=== PATIENT | female | born 1950 ===

== ENCOUNTER 2018-06-18 19:59 | Inpatient (IN) | payer OTHER, MEDICARE ==
--- NOTE | 2018-06-18 20:12 | ED PDOC ---
Arrival/HPI - General Time Seen by Provider: 06/18/18 20:05 Historian: Spouse, EMS - History of Present Illness Narrative History of Present Illness (Text): 06/18/18 20:12 A 67 year old female, whose past medical history includes hypertension, presents to the emergency department via EMS accompanied by for possible CVA. Patient's reports she was found the patient on the floor and poorly responsive when he came home from work. Patient's reports patient was last seen normal earlier this morning. EMS transported patient with noted left sided weakness and poor response to questioning. ROS is limited due to patient's acuity of condition. PMD: Mariela Guillen Time/Duration: Prior to Arrival Symptom Onset: Sudden Symptom Course: Unchanged Activities at Onset: Light Context: Home Past Medical History - Provider Review Nursing Documentation Reviewed: Yes Family/Social History - Physician Review Nursing Documentation Reviewed: Yes Family/Social History: Unknown Family HX Allergies/Home Meds Allergies/Adverse Reactions: Allergies No Known Allergies Allergy (Verified 06/18/18 20:04) Home Medications: Home Meds Medication Instructions Recorded Confirmed Acetaminophen/Codeine 1 tab PO Q4 PRN 06/18/18 06/18/18 [Tylenol/Codeine 300 MG/30 MG] Carvedilol [Coreg] 12.5 mg PO BID 06/18/18 06/18/18 Losartan/Hydrochlorothiazide 1 tab PO DAILY 06/18/18 06/18/18 [Losartan-Hctz 100-12.5 mg Tab] Review of Systems - Review of Systems Systems not reviewed;Unavailable: Acuity of Condition Physical Exam Vital Signs Temp Pulse Resp BP Pulse Ox 06/18/18 23:39 98.5 F 72 17 126/82 100 06/18/18 22:38 98.5 F 74 17 121/58 L 100 06/18/18 22:19 98.5 F 69 20 123/80 100 06/18/18 22:06 98.5 F 68 19 114/77 100 06/18/18 21:54 98.5 F 71 19 124/60 100 06/18/18 21:38 98.5 F 66 19 127/68 100 06/18/18 21:20 98.5 F 86 18 123/85 91 L Mental Status: Positive for: other (+Awake, somnolent, but responsive when questioned). No: Alert and Oriented X 3, Confused, Agitated, Lethargic, Comatose Finger Stick Blood Glucose: 171 - Systems Exam Head: Present: Atraumatic Pupils: Present: Other (+miotic but responsive). No: PERRL, Sluggish, Non- Reactive, Pinpoint Extroacular Muscles: Present: Other (+right gaze preference). No: EOMI, Gaze Palsy, Entrapment Conjunctiva: Present: Normal Mouth: Present: Moist Mucous Membranes Neck: Present: Normal Range of Motion Respiratory/Chest: Present: Clear to Auscultation, Good Air Exchange. No: Respiratory Distress, Accessory Muscle Use Cardiovascular: Present: Regular Rate and Rhythm, Normal S1, S2. No: Murmurs Abdomen: No: Tenderness, Distention, Peritoneal Signs Back: Present: Normal Inspection Upper Extremity: Present: Neurovascularly Intact. No: Edema (no cyanosis edema) Lower Extremity: Present: Normal Inspection, Neurovascularly Intact. No: Edema Neurological: Present: Other (+right gaze preference, left hemiplegia, and right sided paresis). No: Motor Func Grossly Intact, Normal Sensory Function, Normal Cerebellar Funct, Norm Deep Tendon Reflexes, Gait Normal, Memory Normal, Normal 2Pt Descrimination Skin: Present: Warm, Dry, Normal Color. No: Rashes Medical Decision Making ED Course and Treatment: 06/18/18 20:12 Impression: 67 year old female presenting to the emergency department brought in by EMS for a stroke. Plan: -- Type and Screen -- Head CT without contrast -- EKG -- Labs -- Stroke Consult Team -- CBC -- COAGs -- Chest X-ray -- IV fluids -- Reassess and disposition Prior Visits: Notes and results from previous visits were reviewed. Progress Notes: 06/18/18 20:05 Upon arrival, CODE STROKE was called. Pt taken to CT scan. 06/18/18 20:[address] Hart, who requests CTA Head/Neck if no bleed. 06/18/18 20:36 CT Head Without Intravenous Contrast Impression: Findings compatible with acute right cerebral hemispheric infarct including right anterior cerebral artery, right middle cerebral artery, and right posterior cerebral artery territories. Hyperdense distal right internal carotid artery suspected to represent acute thrombus and possible hyperdense right middle cerebral artery. Dictator: Juan Alberto Moses MD 06/18/18 21:05 CT results discussed with Dr. Hart, neurologist, who is aware and agrees with plan. CTA Head/Neck Pending. Patient will receive rectal aspirin, magnesium, and IV fluids. As per Dr. Hart, patient is not a candidate for tPA given bleeding risk. Dr. Hart reviewed CTA, states due to severity of right sided CVA and extension , pt not a candidate for tPA, as stated previously, or for interventional procedure, i.e thrombectomy. Pt will require ICU monitoring at this time. Recommends repeat CT in 12 hours to assess for any cerebral edema. 06/18/18 21:18 Case discussed with dental assistant medical assistant inventory control clerk, who is aware and agrees with plan. 06/18/18 21:20 Spoke with family regarding the gravity of the patient's condition, who are aware and verbalize understanding. Case discussed with Dr. Layton, operations controller, present in Emergency department, who agrees with plan. Patient will be admitted to the ICU for CVA under the hospitalist service. 06/18/18 21:27 Reviewed EKG, NSR at 79 bpm. PACs. Lateral infarct. Non-specific ST/T wave changes. 06/18/18 21:43 Chest X-ray shows: Lungs: There is moderate perihilar interstitial prominence consistent with volume overload or early congestive heart failure. Pleural space: Unremarkable. Heart: There is moderate cardiomegaly. Mediastinum: Unremarkable. Bones/joints: Unremarkable. IMPRESSION: Acute CHF exacerbation. Dictated and Authenticated by: Jayson Mckeon MD 06/18/2018 9:42 PM Eastern Time ([place] & [place]) CTA Head shows: Right internal carotid artery: The right ICA within the intracranial portion is completely occluded. No aneurysm. Right anterior cerebral artery: Unremarkable. No occlusion or significant stenosis. No aneurysm. Right middle cerebral artery: The is markedly diminished flow to the distal branches of the right middle cerebral artery. M1 and M2 segments however do appear patent. No occlusion or significant stenosis. No aneurysm. Right posterior cerebral artery: Unremarkable. No occlusion or significant stenosis. No aneurysm. Right vertebral artery: Unremarkable as visualized. Left internal carotid artery: No acute findings. Intracranial segment is patent with no significant stenosis. No aneurysm. Left anterior cerebral artery: Unremarkable. No occlusion or significant stenosis. No aneurysm. Left middle cerebral artery: Unremarkable. No occlusion or significant stenosis. No aneurysm. Left posterior cerebral artery: Unremarkable. No occlusion or significant stenosis. No aneurysm. Left vertebral artery: Unremarkable as visualized. Basilar artery: Unremarkable. No occlusion or significant stenosis. No aneurysm. Brain: The entire right hemisphere is edematous with complete loss of huang- white matter differentiation. IMPRESSION: Complete occlusion of the right internal carotid artery within the neck, and involving intracranial segment. Although flow is noted is noted within proximal right M1 segment secondary to collateral circulation from the cheesh[place] of [place], there is a complete acute infarction of the entire right hemisphere in progress. No bleed is suggested. Flow is diminished in the distal branch of the right MCA. Dictated and Authenticated by: Jayson Mckeon MD 06/18/2018 9:39 PM Eastern Time ([place] & [place]) CTA Neck shows: Right common carotid artery: Unremarkable. No significant stenosis. No dissection or occlusion. Right internal carotid artery: The right internal carotid artery artery is completely occluded at its origin and extends into the intracranial segment and into the cheesh-na of [place]. Right external carotid artery: Unremarkable. No occlusion. Right vertebral artery: Right vertebral artery is patent and dominant. No significant stenosis. No dissection or occlusion. Left common carotid artery: Unremarkable. No significant stenosis. No dissection or occlusion. Left internal carotid artery: Unremarkable. Extracranial segment is patent with no significant stenosis. No dissection or occlusion. Left external carotid artery: Unremarkable. No occlusion. Left vertebral artery: Left vertebral artery is patent but diminutive. No significant stenosis. No dissection or occlusion. NECK: Bones/joints: The spine demonstrates moderate degenerative changes at multiple levels. No acute fracture. No dislocation. Soft tissues: Unremarkable as visualized. No mass. Orbits: The orbits are normal. Sinuses: Sinuses are clear without air-fluid levels, or mucoperiosteal thickening. Thyroid: The visualized aorta and the great vessels are normal. Negative for dissection, or aneurysm.The visualized thyroid and the thoracic inlet appear normal. Lung apices: Upper lungs show patchy interstitial densities likely edema with thickening of interlobular septa. CAROTID STENOSIS REFERENCE USING NASCET CRITERIA: % ICA stenosis = (1 - narrowest ICA diameter/diameter of distal cervical ICA) x 100. Mild - <50% stenosis. Moderate - 50-69% stenosis. Severe - 70-94% stenosis. Near occlusion - 95-99% stenosis. Occluded - 100% stenosis. IMPRESSION: Complete occlusion of the right internal carotid artery from its origin all the way to the cheesh-na of [place]. Dictated and Authenticated by: Jayson Mckeon MD 06/18/2018 9:41 PM Eastern Time ([place] & [place]) 06/18/18 21:58 Labs noted with positive troponin of 0.74, BNP of 720. IV fluids cancelled. Spoke with Dr. Hart, recommends patient be started on heparin drip only(NSTEMI ) at this time given patients risk of bleed with any aggressive anticoagulation. - Critical Care Critical Care Minutes: 45 minutes - Lab Interpretations Lab Results: 06/18/18 21:10 06/18/18 21:10 Lab Results 06/18/18 21:10: NT-Pro-B Natriuret Pep 720 H 06/18/18 21:10: Blood Type A POSITIVE, Antibody Screen Negative, BBK History Checked No verified bt 06/18/18 21:10: Sodium 138, Potassium 4.3, Chloride 101, Carbon Dioxide 22, Anion Gap 19, BUN 22 H, Creatinine 0.7, Est GFR ( Amer) > 60, Est GFR ( Non-Af Amer) > 60, Random Glucose 180 H, Calcium 9.4, Total Bilirubin 1.0, AST 33, ALT 20, Alkaline Phosphatase 89, Troponin I 0.74 H*, Total Protein 7.8, Albumin 4.2, Globulin 3.6, Albumin/Globulin Ratio 1.1, Triglycerides 127, Cholesterol 268 H, LDL Cholesterol Direct 160 H, HDL Cholesterol 64 H 06/18/18 21:10: PT 11.3, INR 0.99, APTT 23.4 L 06/18/18 21:10: WBC 11.3 H, RBC 4.43, Hgb 14.0, Hct 42.2, MCV 95.3, MCH 31.6, MCHC 33.2, RDW 12.8, Plt Count 170, MPV 10.0, Gran % 86.9 H, Lymph % (Auto) 9.6 L, [place] % (Auto) 3.5, Eos % (Auto) 0.0 L, Baso % (Auto) 0.0, Gran # 9.82 H, Lymph # (Auto) 1.1 L, [place] # (Auto) 0.4, Eos # (Auto) 0.0, Baso # (Auto) 0.00 06/18/18 21:09: pCO2 34 L, pO2 52.0 L, HCO3 20.6 L, ABG pH 7.39, ABG Total CO2 21.6 L, ABG O2 Saturation 91.6 L, ABG O2 Content 16.2, ABG Base Excess -3.7 L, ABG Hemoglobin 12.9, ABG Carboxyhemoglobin 1.5, POC ABG HHb (Measured) 8.2 H, ABG Methemoglobin 0.7, ABG O2 Capacity 17.7, Hgb O2 Saturation 89.6 L, FiO2 36.0 I have reviewed the lab results: Yes - RAD Interpretation Radiology Orders: 06/18/18 20:06 HEAD W/O (CODE STROKE) [CT] Stat CHEST ONE VIEW [RAD] Stat 06/18/18 20:36 CTA HEAD/NECK CODE STROKE [CT] Stat Shrub Grower: ED Physician, Radiologist - Medication Orders Current Medication Orders: Albuterol/Ipratropium (Duoneb 3 Mg/0.5 Mg (3 Ml) Ud) 3 ml IH [id number] MARQUIS Last Admin: 06/19/18 01:07 Dose: 3 ml Atorvastatin Calcium (Lipitor) 80 mg PO DIN MARQUIS Piperacillin Sod/Tazobactam Sod (Zosyn 3.375 In Ns 100ml) 100 mls @ 200 mls/hr IVPB Q6 MARQUIS PRN Reason: Protocol Stop: 06/19/18 06:29 Last Admin: 06/19/18 00:45 Dose: 200 mls/hr eMAR Start Stop Document 06/19/18 00:45 MG (Rec: 06/19/18 00:45 MG [id number]) Intravenous Solution Start Date 06/19/18 Start Time 00:45 End Date 06/19/18 End time 01:15 Total Infusion Time 30 Heparin Sodium/Sodium Chloride (Heparin 25991 Units/250ml 1/2 Normal Saline) 25 ,000 units in 250 mls @ 8.241 mls/hr IV .Q24H MARQUIS; 12 UNITS/KG/HR PRN Reason: Protocol Last Admin: 06/18/18 23:30 Dose: 12 units/kg/hr, 8.241 mls/hr eMAR Start Stop Document 06/18/18 23:30 OCS (Rec: 06/18/18 23:31 OCS [id number]) Intravenous Solution Start Date 06/18/18 Start Time 23:30 MAR aPTT Document 06/18/18 23:30 OCS (Rec: 06/18/18 23:31 OCS [id number]) aPTT aPTT (secs) 23.4 Titration Intervention Document 06/18/18 23:30 OCS (Rec: 06/18/18 23:31 OCS [id number]) Titration Intake Waste Amount 0 Container Volume 250 Titration Dosing Titration Dose 12 IV Rate 8.241 Intake/Decrease Started Discontinued Medications Aspirin (Aspirin Supp) 300 mg RC STAT STA Stop: 06/18/18 21:07 Last Admin: 06/18/18 21:50 Dose: 300 mg MAR Pain/Vitals Document 06/18/18 21:50 JMR (Rec: 06/18/18 21:51 [id number] Pain Reassessment Is This A Pain ReAssessment? No Sleep Is patient sleeping during reassessment? No Presence of Pain Presence of Pain No Sodium Chloride (Sodium Chloride 0.9%) 1,000 mls @ 100 mls/hr IV .Q10H [facility] Last Admin: 06/18/18 21:56 Dose: Magnesium Sulfate/Dextrose (Magnesium Sulfate 1 Gm/100 Ml D5w) 1 gm in 100 mls @ 100 mls/hr IVPB ONCE ONE Stop: 06/18/18 22:06 Last Admin: 06/18/18 21:51 Dose: 100 mls/hr eMAR Start Stop Document 06/18/18 21:51 JMR (Rec: 06/18/18 21:51 R [id number]) Intravenous Solution Start Date 06/18/18 Start Time 21:51 Sodium Chloride (Sodium Chloride 0.9%) 1,000 mls @ 999 mls/hr IV .Q1H1M STA Stop: 06/18/18 23:01 NIHSS Scale ([place]) Time Performed: 20:05 - How Severe is the Stoke Baseline Level of Consciousness: 1=Drowsy LOC to Questions: 1=One correct LOC to commands: 1=Obeys one correctly Best Gaze: 2=Forced deviation Visual: 0=No visual loss Facial: 0=Normal Motor Arm - Left: 4=No movement Motor Arm - Right: 2=Falls before 10 sec Motor Leg - Left: 4=No movement Motor Leg - Right: 2=Falls before 5 sec Limb Ataxia: 0=Absent Sensory: 0=Normal Best Language: 0=No aphasia Dysarthia: 1=Mild to moderate slurring Extinction & Inattention (Neglect): 0=Normal, no object Score: 18 Risk Level: Mod/Sev Stroke Risk rTPA Inclusion/Exclusion - Refusal of Treatment Patient Refused Treatment: No - Inclusion Criteria for Altepase Patient is 18 years or Older: Yes The Clinical Diagnosis of Ischemic Stroke That is Causing a Potentially Disabling Neurological Deficit: Yes Time of Onset is Well Established to be Less Than 270 Minute Before Treatment Would Begin: No - Exclusion Criteria for Altepase Uncontrolled Hypertension at Time of Treatment (Systolic BP above 185 or Diastolic BP above 110 mmHg): No Active Internal Bleeding: No Known Bleeding Diathesis Including but Not Limited to: Platelets Below 100,000/ mm,PTT Above 40 sec After Heparin Use, Current Use of Oral Anitcoagulant With INR Greater Than 1.7 or PT Greater Than 15 secs: No Evidence of an Intracranial Hemorrhage: No Evidence of Major Acute Infarct With Signs Greater Than 1/3 MCA Territory: Yes Suspicion of Subarachnoid Hemorrhage on Pretreatment Evaluation Even if CT Head Negative For Hemorrhage: No - Warning to TPA With Conditions Following Conditions Weighed Against Anticipated Benefit: Yes Condition: Increase Risk of Bleed Due to Comorbid Condition - Scribe Statement The provider has reviewed the documentation as recorded by the Lawanda Molina All medical record entries made by the Delmisibdavid were at my direction and personally dictated by me. I have reviewed the chart and agree that the record accurately reflects my personal performance of the history, physical exam, medical decision making, and the department course for this patient. I have also personally directed, reviewed, and agree with the discharge instructions and disposition. Disposition/Present on Arrival - Present on Arrival Any Indicators Present on Arrival: No History of DVT/PE: No History of Uncontrolled Diabetes: No Urinary Catheter: No History of Decub. Ulcer: No History Surgical Site Infection Following: None - Disposition Have Diagnosis and Disposition been Completed?: Yes Diagnosis: CVA (cerebral vascular accident), NSTEMI (non-ST elevated myocardial infarction ) Disposition: HOSPITALIZED Disposition Time: 21:34 Patient Plan: Admission Patient Problems: Current Active Problems Problem Status Onset CVA (cerebral vascular accident) Acute NSTEMI (non-ST elevated myocardial infarction) Acute Condition: CRITICAL
[2018-06-18] MEDS ORDERED: Sodium Chloride 0.9% 1,000 ML IV SCH (20:15)
[2018-06-18] MEDS ORDERED: Iohexol 350 MG/100 ML VIAL ONE (20:15)
[2018-06-18] MEDS ORDERED: Magnesium Sulfate 1 gm in D5W 1 GM/100 ML BAG IVPB ONE (21:07)
[2018-06-18 21:12] LABS: ARTERIAL BLOOD GAS HCO3 20.6 mmol/L (21-28); ARTERIAL BLOOD GAS HEMOGLOBIN 12.9 g/dL (11.7-17.4); ARTERIAL BLOOD GAS O2 CAPACITY 17.7 mL/dl (16-24); ARTERIAL BLOOD GAS O2 CONTENT 16.2 ML/dl (15-23); ARTERIAL BLOOD GAS O2 SAT 91.6 % (95-98); ARTERIAL BLOOD GAS PCO2 34 mm/Hg (35-45); ARTERIAL BLOOD GAS PH 7.39 (7.35-7.45); ARTERIAL BLOOD GAS TCO2 21.6 mmol.L (22-28)
[2018-06-18 21:14] LABS: GRAN # 9.82 (1.4-6.5); GRAN % 86.9 % (50.0-68.0); LYMPH # 1.1 (1.2-3.4); LYMPH % 9.6 % (22.0-35.0); MEAN CELL VOLUME 95.3 fl (80.0-105.0); MEAN CORPUSCULAR HEMOGLOBIN 31.6 pg (25.0-35.0); MEAN CORPUSCULAR HGB CONC 33.2 g/dl (31.0-37.0); MONO # 0.4 (0.1-0.6); MONO % 3.5 % (1.0-6.0); RBC 4.43 10^6/uL (3.5-6.1); RED CELL DISTRIBUTION WIDTH 12.8 % (11.5-14.5); WHITE BLOOD COUNT 11.3 10^3/ul (4.5-11.0)
[2018-06-18 21:27] LABS: ALB/GLOB RATIO 1.1 (1.1-1.8); ALBUMIN 4.2 g/dL (3.0-4.8); ALT/SGPT 20 U/L (7-56); AST/SGOT 33 U/L (14-36); BLOOD UREA NITROGEN 22 mg/dL (7-21); CALCIUM 9.4 mg/dL (8.4-10.5); GFR NON-AFRICAN AMERICAN > 60; HDL CHOLESTEROL 64 mg/dL (29-60)
[2018-06-18 21:37] LABS: LDL CHOLESTEROL 160 mg/dL (0-129)
[2018-06-18 21:40] LABS: INR 0.99; PARTIAL THROMBOPLASTIN TIME 23.4 Seconds (25.1-36.5); PROTHROMBIN TIME 11.3 SECONDS (9.4-12.5)
[2018-06-18 21:50] LABS: TROPONIN I 0.74 ng/mL
[2018-06-18] MEDS: Sodium Chloride 0.9% 1,000 ML IV SCH ×2 (21:51→21:56)
[2018-06-18] MEDS ORDERED: Sodium Chloride 0.9% 1,000 ML IV STA (22:01)
[2018-06-18] MEDS ORDERED: Heparin25000 units/250ml 1/2NS 25,000 UNITS/250 ML BAG IV PRN (22:03)
[2018-06-18] MEDS ORDERED: Heparin 25,000units in 1/2NS 250 ML BAG IV SCH (23:30)
[2018-06-19 00:13] LABS: URINE BILIRUBIN NEGATIVE (NEGATIVE); URINE BLOOD NEGATIVE (NEGATIVE); URINE GLUCOSE (UA) 100 mg/dL (NEGATIVE); URINE LEUKOCYTE ESTERASE NEGATIVE Leu/uL (NEGATIVE); URINE PROTEIN NEGATIVE mg/dL (<30 mg/dL); URINE UROBILINOGEN 0.2 E.U./dL (<1 E.U./dL)
[2018-06-19 00:15] LABS: URINE APPEARANCE CLEAR (CLEAR); URINE COLOR YELLOW (YELLOW)
[2018-06-19 00:44] LABS: ARTERIAL BLOOD GAS HCO3 23.7 mmol/L (21-28); ARTERIAL BLOOD GAS HEMOGLOBIN 14.9 g/dL (11.7-17.4); ARTERIAL BLOOD GAS O2 CAPACITY 20.8 mL/dl (16-24); ARTERIAL BLOOD GAS O2 CONTENT 20.8 ML/dl (15-23); ARTERIAL BLOOD GAS PCO2 42 mm/Hg (35-45); ARTERIAL BLOOD GAS PH 7.36 (7.35-7.45)
[2018-06-19] MEDS: Piperacillin/Tazobact 3.375 gm 100 ML IVPB SCH ×2 (00:45→05:51)
[2018-06-19] MEDS: Albuterol-Ipratrop 3 mg / 0.5 (3 ml) UD IH SCH ×2 (01:07→08:19)
[2018-06-19 02:03] VITALS: TEMP 97.6; BMI 25.5
--- NOTE | 2018-06-19 02:12 | CP.PCM.HP ---
<Ruddy Pavon - Last Filed: 06/19/18 06:08> History of Present Illness - History of Present Illness History of Present Illness: Ruddy Savanah DO PGY-1, H&P for hospitalist CC: unresponsive pt found on the floor This is a 67 year-old female with past medical history of hypertension who was brought in by ambulance due to patient being found on floor, unresponsive with left-sided weakness noted at 7 PM today. As per , patient was last seen moving on motion detector camera at home at around 10:12 AM. Via video footage, she proceeded to enter a room and never returned. Patient's arrived at the house at 7 PM today after work and found the patient on the floor unable to speak, "mumbling incomprehensively," and unable to move the left side of her body. proceeded to call 911. Prior to arrival of EMS patient had one episode of vomiting in the house, described as brown/orange colored: He denies any bright blood or bilious material. As per , patient was in her normal health when leaving for work this morning. As per , patient has not had any recent fever, chills, illness, chest pain, shortness of breath, abdominal pain, nausea, vomiting, diarrhea, weakness, lightheadedness, dysuria mentioned to the prior to incident today. On arrival to the ED code stroke was called. And noncontrast head CT was done. ED physician noted that patient had left-sided flaccid paralysis and right gaze preference. Patient was nonverbal and unable to open her eyes. Noncontrast Head CT Findings compatible with acute right cerebral hemispheric infarct including right anterior cerebral artery, right middle cerebral artery, and right posterior cerebral artery territories. Hyperdense distal right internal carotid artery suspected to represent acute thrombus and possible hyperdense right middle cerebral artery. ED consulted neurology. Dr. Hart recommended no TPA at this time due to unknown duration of sypmtoms, and no thrombectomy at this time. Patient received magnesium 1g IVPB and NS IVF. Neurology instructed the ED to keep blood pressure less than 220 systolic. ICU consulted for management of pt. PMD: Alam. Last seen one month ago. Patient regularly follows up with her primary care physician as per . PMH: Hypertension, Asthma PSH: tooth extraction a couple of months ago Medications: Carvedilol 12.5 mg QD, Losartan/HCTZ 100/12.5 mg QD, Tylenol #3 300 /30 mg PO PRN pain Q4-6H Allergies: NKDA Family history: mother had a CABG. No history of cancers Social history: no smoking, no etoh, no illicit drug use. Patient lives in [place] with her , who is the bedside. Code status: , discussed with family, and would like patient to be intubated and CPR be initiated if needed. Present on Admission - Present on Admission Any Indicators Present on Admission: No Review of Systems - Review of Systems All systems: reviewed and no additional remarkable complaints except (as per HPI ) Past Patient History - Infectious Disease Hx of Infectious Diseases: None - Past Social History Smoking Status: Unknown If Ever Smoked - CARDIAC Hx Cardiac Disorders: Yes Hx Hypotension: Yes - PULMONARY Hx Respiratory Disorders: Yes Hx Asthma: Yes - NEUROLOGICAL Hx Neurological Disorder: No - HEENT Hx HEENT Problems: No - RENAL Hx Chronic Kidney Disease: No - ENDOCRINE/METABOLIC Hx Endocrine Disorders: No - HEMATOLOGICAL/ONCOLOGICAL Hx Blood Disorders: No - INTEGUMENTARY Hx Dermatological Problems: No - MUSCULOSKELETAL/RHEUMATOLOGICAL Hx Musculoskeletal Disorders: No - GASTROINTESTINAL Hx Gastrointestinal Disorders: No - GENITOURINARY/GYNECOLOGICAL Hx Genitourinary Disorders: No - PSYCHIATRIC Hx Psychophysiologic Disorder: No Hx Substance Use: No (unknown) - SURGICAL HISTORY Hx Surgeries: (Dental Surgery 1 month ago) Meds Allergies/Adverse Reactions: Allergies Allergy/AdvReac Type Severity Reaction Status Date / Time No Known Allergies Allergy Verified 06/18/18 20:04 Physical Exam - Constitutional Appears: No Acute Distress - Head Exam Head Exam: ATRAUMATIC, NORMAL INSPECTION - Eye Exam Eye Exam: PERRL Additional comments: (+) right sided gaze preference, eyes do not track past midline - ENT Exam ENT Exam: Mucous Membranes Moist, Normal Exam - Neck Exam Neck exam: Positive for: Normal Inspection Additional comments: (-) carotid bruit bilaterally - Respiratory Exam Respiratory Exam: Rhonchi (scattered), Wheezes (scattered) - Cardiovascular Exam Cardiovascular Exam: REGULAR RHYTHM, +S1, +S2. absent: Systolic Murmur - GI/Abdominal Exam GI & Abdominal Exam: Normal Bowel Sounds, Soft. absent: Tenderness - Extremities Exam Extremities exam: Positive for: normal inspection, pedal pulses present (3+ bilaterally). Negative for: pedal edema - Neurological Exam Neurological exam: Motor Sensory Deficit (Pt is following commands, but eyes remain closed. 3/5 strength right upper and lower extremities. 0/5 strength upper and lower extremities, including CN XI. Unresponsive to painful stimuli on the left upper and lower extremities.) Additional comments: (+) gag reflex, remainder of cranial nerves are unable to be assessed to pt not following commands - Skin Skin Exam: Dry, Normal Color, Warm Results - Vital Signs Recent Vital Signs: Last Vital Signs Temp 98.5 F 06/18/18 23:50 Pulse 65 06/19/18 01:20 Resp 18 06/19/18 01:20 BP 130/77 06/19/18 01:15 Pulse Ox 100 06/19/18 01:20 - Labs Result Diagrams: 06/18/18 21:10 06/18/18 21:10 Labs: Laboratory Results - last 24 hr 06/18/18 06/18/18 06/19/18 21:52 23:40 00:38 pCO2 42 pO2 172.0 H HCO3 23.7 ABG pH 7.36 ABG Total CO2 25.0 ABG O2 Saturation 100.0 H ABG O2 Content 20.8 ABG Base Excess -1.8 ABG Hemoglobin 14.9 ABG Carboxyhemoglobin 1.5 POC ABG HHb (Measured) 0 ABG Methemoglobin 0.8 ABG O2 Capacity 20.8 Hgb O2 Saturation 97.6 FiO2 50.0 Urine Color Yellow Urine Appearance Clear Urine pH 6.0 Ur Specific [place] 1.020 Urine Protein Negative Urine Glucose (UA) 100 H Urine Ketones Trace H Urine Blood Negative Urine Nitrate Negative Urine Bilirubin Negative Urine Urobilinogen 0.2 Ur Leukocyte Esterase Negative Blood Type Confirm A POSITIVE Assessment & Plan - Assessment and Plan (Free Text) Assessment: This is a 67 year-old female with past medical history of hypertension, asthma who was brought in by ambulance due to inability to speak and left-sided weakness noted by at 7 pm on 06/18/18 but unknown duration of symptoms, and pt last seen with normal function at approximately [address] Findings compatible with acute right cerebral hemispheric infarct including right anterior cerebral artery, right middle cerebral artery, and right posterior cerebral artery territories. Pt admitted to ICU for neurological and cardiovascular monitoring. Plan: Neuro: acute right cerebral hemispheric infarct - NIHSS is 18 on admission - Outside the time window for tPA and per neurologist, Dr Hart, patient not candidate for neurointervention - Noncontrast Head CT Findings compatible with acute right cerebral hemispheric infarct including right anterior cerebral artery, right middle cerebral artery, and right posterior cerebral artery territories. Hyperdense distal right internal carotid artery suspected to represent acute thrombus and possible hyperdense right middle cerebral artery. - Head and Neck CTA shows Complete occlusion of the right internal carotid artery from its origin all the way to the [place]. Although flow is noted within proximal right M1 segment secondary to collateral circulation from the [place], there is a complete acute infarction of the entire right hemisphere in progress. No bleed is suggested. Flow is diminished in the distal branch of the right MCA. - repeat Head CT in am to evaluate for cerebral edema - neurochecks - aspiration, seizure and fall precautions - Neurology consulted, recs appreciated Cardio: NSTEMI - troponin elevated at 0.74 on admission; will trend troponin x3 Q6H - As per ED physician, who spoke with Dr. Hart, it was recommended to start pt on Heparin gtt - EKG shows NSR at 79 bpm, non-specific STT wave changes - maintain MAP>65 mmHg - maintain permissive HTN SBP<220, DBP<120 - f/u echocardiogram - Lipitor 80 mg via NGT for secondary prevention of stroke Pulm: Possible Aspiration Pneumonia - given history of vomiting prior to EMS arrival and CXR findings; aspiration pneumonia is a concern - Zosyn started - maintain SpO2>95%; venturi mask - HoB>45 degrees - donuebs q6h GI: - Pt placed NPO pending swallow eval - NGT placed for stomach emptying to reduce risk of aspiration - protonix for GI ppx Renal: - epstein in place - strict Is and Os - BUN/Cr is 22/07 on admission - maintain euvolemia - gentle hydration if needed, in light of vascular congestion and BNP elevation Endo: - maintain euglycemia - f/u TSH/free T4 Heme: - H/H is 14.0/42.2 on admission - pt is on heparin gtt for treatment of NSTEMI ID: - leukocytosis is likely reactive; pt afebrile - continue zosyn for suspected aspiration pneumonia PPX: Protonix for GI, SCDs for DVT; pt is on heparin gtt Case was discussed and reviewed with attending physician, Dr. Layton <Taylor Layton - Last Filed: 06/19/18 06:34> Results - Vital Signs Recent Vital Signs: Last Vital Signs Temp 97.6 F 06/19/18 01:08 Pulse 68 06/19/18 02:00 Resp 18 06/19/18 01:20 BP 130/77 06/19/18 01:15 Pulse Ox 100 06/19/18 01:20 - Labs Result Diagrams: 06/18/18 21:10 06/18/18 21:10 Labs: Laboratory Results - last 24 hr 06/18/18 06/18/18 06/19/18 21:52 23:40 00:38 pCO2 42 pO2 172.0 H HCO3 23.7 ABG pH 7.36 ABG Total CO2 25.0 ABG O2 Saturation 100.0 H ABG O2 Content 20.8 ABG Base Excess -1.8 ABG Hemoglobin 14.9 ABG Carboxyhemoglobin 1.5 POC ABG HHb (Measured) 0 ABG Methemoglobin 0.8 ABG O2 Capacity 20.8 Hgb O2 Saturation 97.6 FiO2 50.0 Urine Color Yellow Urine Appearance Clear Urine pH 6.0 Ur Specific [place] 1.020 Urine Protein Negative Urine Glucose (UA) 100 H Urine Ketones Trace H Urine Blood Negative Urine Nitrate Negative Urine Bilirubin Negative Urine Urobilinogen 0.2 Ur Leukocyte Esterase Negative Blood Type Confirm A POSITIVE Attending/Attestation - Attestation I have personally seen and examined this patient.: Yes I have fully participated in the care of the patient.: Yes I have reviewed all pertinent clinical information: Yes Notes (Text): 06/19/18 06:34 Discussed with family guarded prognosis, but family agreed on full code.
[2018-06-19 07:30] LABS: GRAN # 12.93 (1.4-6.5); GRAN % 87.8 % (50.0-68.0); HEMOGLOBIN 14.2 g/dL (12.0-16.0); LYMPH # 1.1 (1.2-3.4); LYMPH % 7.3 % (22.0-35.0); MEAN CELL VOLUME 94.2 fl (80.0-105.0); MEAN CORPUSCULAR HEMOGLOBIN 31.5 pg (25.0-35.0); MEAN CORPUSCULAR HGB CONC 33.4 g/dl (31.0-37.0); MEAN PLATELET VOLUME 10.7 fl (7.0-11.0); MONO # 0.7 (0.1-0.6); MONO % 4.9 % (1.0-6.0); RBC 4.51 10^6/uL (3.5-6.1); RED CELL DISTRIBUTION WIDTH 13.2 % (11.5-14.5); WHITE BLOOD COUNT 14.7 10^3/ul (4.5-11.0)
[2018-06-19 08:41] LABS: ALB/GLOB RATIO 1.2 (1.1-1.8); ALBUMIN 4.4 g/dL (3.0-4.8); ALT/SGPT 15 U/L (7-56); AST/SGOT 47 U/L (14-36); BLOOD UREA NITROGEN 24 mg/dL (7-21); CALCIUM 9.4 mg/dL (8.4-10.5); GFR NON-AFRICAN AMERICAN > 60
--- NOTE | 2018-06-19 09:15 | CT ---
Date of service: 06/18/2018 PROCEDURE: CT HEAD WITHOUT CONTRAST. HISTORY: Code Stroke COMPARISON: None available. TECHNIQUE: Axial computed tomography images were obtained through the head/brain without intravenous contrast. Radiation dose: Total exam DLP = 962 mGy-cm. This CT exam was performed using one or more of the following dose reduction techniques: Automated exposure control, adjustment of the mA and/or kV according to patient size, and/or use of iterative reconstruction technique. FINDINGS: HEMORRHAGE: No intracranial hemorrhage. BRAIN: There is a diffuse infarct of the right cerebral hemisphere with edema and mass effect with loss of sulci. No significant midline shift. The basal cisterns are maintained The right internal carotid and proximal middle cerebral artery are hyper dense suspicious for thrombus. VENTRICLES: Unremarkable. No hydrocephalus. CALVARIUM: Unremarkable. PARANASAL SINUSES: Unremarkable as visualized. No significant inflammatory changes. MASTOID AIR CELLS: Unremarkable as visualized. No inflammatory changes. OTHER FINDINGS: The report concurs with the preliminary [facility] report IMPRESSION: There is a diffuse infarct of the right cerebral hemisphere with edema and mass effect with loss of sulci. No significant midline shift. The basal cisterns are maintained The right internal carotid and proximal middle cerebral artery are hyper dense suspicious for thrombus.
--- NOTE | 2018-06-19 09:17 | CT ---
Date of service: 06/19/2018 PROCEDURE: CT HEAD WITHOUT CONTRAST. HISTORY: neurological changes, r/o bleed COMPARISON: None available. TECHNIQUE: Axial computed tomography images were obtained through the head/brain without intravenous contrast. Radiation dose: Total exam DLP = 902 mGy-cm. This CT exam was performed using one or more of the following dose reduction techniques: Automated exposure control, adjustment of the mA and/or kV according to patient size, and/or use of iterative reconstruction technique. FINDINGS: HEMORRHAGE: No intracranial hemorrhage. BRAIN: There is severe swelling of the right hemisphere with 18 mm of midline shift to the left. There is uncal herniation with compression of the midbrain and obliteration of the basal cisterns. VENTRICLES: Compression of the right lateral ventricle CALVARIUM: Unremarkable. PARANASAL SINUSES: Unremarkable as visualized. No significant inflammatory changes. MASTOID AIR CELLS: Unremarkable as visualized. No inflammatory changes. OTHER FINDINGS: The findings were discussed with the CCU market research intern at 9 a.m. IMPRESSION: There is severe swelling of the right hemisphere with 18 mm of midline shift to the left. There is uncal herniation with compression of the midbrain and obliteration of the basal cisterns.
--- NOTE | 2018-06-19 09:20 | CT ---
Date of service: 06/18/2018 PROCEDURE: CT Angiography of the neck with contrast HISTORY: cva COMPARISON: None. TECHNIQUE: Contiguous axial images of the neck were obtained from the level of the skull-base to the superior mediastinum in the arteriographic phase of enhancement. Coronal and sagittal reformats or also generated. IV contrast dose: Radiation Dose - DLP: mGy-cm This CT exam was performed using one or more of the following dose reduction techniques: Automated exposure control, adjustment of the mA and/or kV according to patient size, and/or use of iterative reconstruction technique. FINDINGS: RIGHT CAROTID ARTERIES: There is complete occlusion of the right internal carotid artery just beyond the bifurcation and extending into the intracranial segments. LEFT CAROTID ARTERIES: Common Carotid Artery: Normal. Carotid Bifurcation: Normal. Internal Carotid Artery:Normal. External Carotid Artery (proximal branches): Normal. VERTEBRAL ARTERIES: Right Vertebral Artery: Normal. Left Vertebral Artery: Normal. OTHER FINDINGS: The report concurs with the preliminary [facility] report IMPRESSION: There is complete occlusion of the right internal carotid artery just beyond the bifurcation and extending into the intracranial segments. PROCEDURE: CT Angiography of the Brain. HISTORY: cva COMPARISON: None available. TECHNIQUE: CT angiography of the intracranial arteries was performed. Coronal and sagittal maximum intensity projection reformated images were generated. This CT exam was performed using one or more of the following dose reduction techniques: Automated exposure control, adjustment of the mA and/or kV according to patient size, and/or use of iterative reconstruction technique. FINDINGS: INTERNAL CEREBRAL ARTERIES: There is occlusion of the intra cavernous and supraclinoid segments of the right internal carotid artery. ANTERIOR CEREBRAL ARTERIES: Unremarkable. A1 and A2 segments are widely patent. Smaller distal branches unremarkable, as visualized. MIDDLE CEREBRAL ARTERIES: Collateral flow is noted in the proximal right M1 segment. There is complete acute infarction of the entire right hemisphere. POSTERIOR CIRCULATION: Basilar Artery: Unremarkable. Distal Vertebral Arteries: Unremarkable. Posterior Cerebral Arteries: Unremarkable. Posterior Inferior Cerebellar Arteries: Unremarkable. ANEURYSM/ VASCULAR MALFORMATIONS: None. OTHER FINDINGS: None. IMPRESSION: There is occlusion of the intra cavernous and supraclinoid segments of the right internal carotid artery.
--- NOTE | 2018-06-19 09:29 | RAD ---
Date of service: 06/18/2018 HISTORY: confirm placement of NGT COMPARISON: Earlier same day FINDINGS: LUNGS: Vascular and interstitial congestion PLEURA: No significant pleural effusion identified, no pneumothorax apparent. CARDIOVASCULAR: Normal. OSSEOUS STRUCTURES: No significant abnormalities. VISUALIZED UPPER ABDOMEN: Nasogastric tube in satisfactory position OTHER FINDINGS: None. IMPRESSION: Nasogastric tube in satisfactory position
[2018-06-19] MEDS ORDERED: Morphine 4 mg/ml ISec IVP PRN (09:38)
--- NOTE | 2018-06-19 09:40 | CP.PCM.CON ---
History of Present Illness - History of Present Illness History of Present Illness: Palliative consult requested by Dr Chapo Mahoney Reason: Goals of care 67 year old female with history of HTN and asthma who was found on the floor by her at 7 PM. Husbands stated she was unable to speak and or move left side of her body. last reports seeing her on video footage at 10: 12AM that morning. reported that she had no fever, chills, chest pain, shortness of breath, abdominal pain,nausea, vomiting, headache,dizziness, weakness, diarrhea or dysuria. Upon arrival to ED she was found to have left sided paralyses, right gaze preference. She was non verbal and unable to open eyes or follow command. Initial head CT showed acute right cerebral hemispheric infarct including right right anterior, middle and posterior arteries. Hyperdense distal right internal carotid artery suspected to represent acute thrombus and possible right MCA. TPA not recommended due to unknown duration of symptoms. Not a candidate for neurosurgical intervention. 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 Retired, lives with her spume. Family History: Mother CABG Advance Care Planning:: The patient did not have an advanced directive. indicated the patient wants to be DNR/DNI. Review of Systems: As per HPI, patient altered unable to obtain. Past Patient History - Infectious Disease Hx of Infectious Diseases: None - Past Social History Smoking Status: Unknown If Ever Smoked - CARDIAC Hx Cardiac Disorders: Yes Hx Hypotension: Yes - PULMONARY Hx Respiratory Disorders: Yes Hx Asthma: Yes - NEUROLOGICAL Hx Neurological Disorder: No - HEENT Hx HEENT Problems: No - RENAL Hx Chronic Kidney Disease: No - ENDOCRINE/METABOLIC Hx Endocrine Disorders: No - HEMATOLOGICAL/ONCOLOGICAL Hx Blood Disorders: No - INTEGUMENTARY Hx Dermatological Problems: No - MUSCULOSKELETAL/RHEUMATOLOGICAL Hx Musculoskeletal Disorders: No - GASTROINTESTINAL Hx Gastrointestinal Disorders: No - GENITOURINARY/GYNECOLOGICAL Hx Genitourinary Disorders: No - PSYCHIATRIC Hx Psychophysiologic Disorder: No Hx Substance Use: No (unknown) - SURGICAL HISTORY Hx Surgeries: (Dental Surgery 1 month ago) Meds Allergies/Adverse Reactions: Allergies Allergy/AdvReac Type Severity Reaction Status Date / Time No Known Allergies Allergy Verified 06/18/18 20:04 - Medications Medications: Current Medications Albuterol/Ipratropium (Duoneb 3 Mg/0.5 Mg (3 Ml) Ud) 3 ml IH [id number] MARQUIS Last Admin: 06/19/18 08:19 Dose: 3 ml Atorvastatin Calcium (Lipitor) 80 mg PO DIN MARQUIS Heparin Sodium/Sodium Chloride (Heparin 76566 Units/250ml 1/2 Normal Saline) 25 ,000 units in 250 mls @ 8.241 mls/hr IV .Q24H MARQUIS; 12 UNITS/KG/HR PRN Reason: Protocol Last Admin: 06/18/18 23:30 Dose: 12 units/kg/hr, 8.241 mls/hr Piperacillin Sod/Tazobactam Sod (Zosyn 4.5 Gm In Ns 100ml) 4.5 gm in 100 mls @ 200 mls/hr IVPB Q6 MARQUIS PRN Reason: Protocol Stop: 06/19/18 18:29 Pantoprazole Sodium (Protonix Inj) 40 mg IVP DAILY [facility] Physical Exam - Constitutional Appears: No Acute Distress - Head Exam Head Exam: NORMOCEPHALIC - ENT Exam ENT Exam: Mucous Membranes Moist, Normal Oropharynx - Neck Exam Neck exam: Positive for: Normal Inspection - Respiratory Exam Respiratory Exam: Clear to Auscultation Bilateral, NORMAL BREATHING PATTERN - Cardiovascular Exam Cardiovascular Exam: REGULAR RHYTHM, +S1 - GI/Abdominal Exam GI & Abdominal Exam: Normal Bowel Sounds, Soft - Extremities Exam Extremities exam: Positive for: normal inspection, pedal pulses present - Back Exam Back exam: NORMAL INSPECTION - Neurological Exam Additional comments: somnolent - Skin Skin Exam: Dry, Warm - Additional Findings Additional findings: Palliative performance scale rating 20% Results - Vital Signs Recent Vital Signs: Last Vital Signs Temp 97.6 F 06/19/18 01:08 Pulse 49 L 06/19/18 08:14 Resp 16 06/19/18 08:14 BP 112/61 06/19/18 08:15 Pulse Ox 99 06/19/18 08:14 - Labs Result Diagrams: 06/19/18 06:45 06/19/18 06:50 Labs: Laboratory Results - last 24 hr 06/18/18 06/18/18 06/19/18 21:52 23:40 00:38 WBC RBC Hgb Hct MCV MCH MCHC RDW Plt Count MPV Gran % Lymph % (Auto) [place] % (Auto) Eos % (Auto) Baso % (Auto) Gran # Lymph # (Auto) [place] # (Auto) Eos # (Auto) Baso # (Auto) APTT pCO2 42 pO2 172.0 H HCO3 23.7 ABG pH 7.36 ABG Total CO2 25.0 ABG O2 Saturation 100.0 H ABG O2 Content 20.8 ABG Base Excess -1.8 ABG Hemoglobin 14.9 ABG Carboxyhemoglobin 1.5 POC ABG HHb (Measured) 0 ABG Methemoglobin 0.8 ABG O2 Capacity 20.8 Hgb O2 Saturation 97.6 FiO2 50.0 Sodium Potassium Chloride Carbon Dioxide Anion Gap BUN Creatinine Est GFR ( Amer) Est GFR (Non-Af Amer) POC Glucose (mg/dL) Random Glucose Calcium Phosphorus Magnesium Total Bilirubin AST ALT Alkaline Phosphatase Total Protein Albumin Globulin Albumin/Globulin Ratio TSH 3rd Generation Urine Color Yellow Urine Appearance Clear Urine pH 6.0 Ur Specific [place] 1.020 Urine Protein Negative Urine Glucose (UA) 100 H Urine Ketones Trace H Urine Blood Negative Urine Nitrate Negative Urine Bilirubin Negative Urine Urobilinogen 0.2 Ur Leukocyte Esterase Negative Blood Type Confirm A POSITIVE 06/19/18 06/19/18 06/19/18 06:30 06:45 06:50 WBC 14.7 H D RBC 4.51 Hgb 14.2 Hct 42.5 MCV 94.2 MCH 31.5 MCHC 33.4 RDW 13.2 Plt Count 209 MPV 10.7 Gran % 87.8 H Lymph % (Auto) 7.3 L [place] % (Auto) 4.9 Eos % (Auto) 0.0 L Baso % (Auto) 0.0 Gran # 12.93 H Lymph # (Auto) 1.1 L [place] # (Auto) 0.7 H Eos # (Auto) 0.0 Baso # (Auto) 0.00 APTT 79.3 H pCO2 pO2 HCO3 ABG pH ABG Total CO2 ABG O2 Saturation ABG O2 Content ABG Base Excess ABG Hemoglobin ABG Carboxyhemoglobin POC ABG HHb (Measured) ABG Methemoglobin ABG O2 Capacity Hgb O2 Saturation FiO2 Sodium 138 Potassium 4.1 Chloride 102 Carbon Dioxide 23 Anion Gap 17 BUN 24 H Creatinine 0.8 Est GFR ( Amer) > 60 Est GFR (Non-Af Amer) > 60 POC Glucose (mg/dL) Random Glucose 214 H Calcium 9.4 Phosphorus 2.6 Magnesium 2.4 H Total Bilirubin 1.5 H AST 47 H D ALT 15 Alkaline Phosphatase 85 Total Protein 8.0 Albumin 4.4 Globulin 3.7 Albumin/Globulin Ratio 1.2 TSH 3rd Generation Urine Color Urine Appearance Urine pH Ur Specific [place] Urine Protein Urine Glucose (UA) Urine Ketones Urine Blood Urine Nitrate Urine Bilirubin Urine Urobilinogen Ur Leukocyte Esterase Blood Type Confirm 06/19/18 06/19/18 06:50 08:32 WBC RBC Hgb Hct MCV MCH MCHC RDW Plt Count MPV Gran % Lymph % (Auto) [place] % (Auto) Eos % (Auto) Baso % (Auto) Gran # Lymph # (Auto) [place] # (Auto) Eos # (Auto) Baso # (Auto) APTT pCO2 pO2 HCO3 ABG pH ABG Total CO2 ABG O2 Saturation ABG O2 Content ABG Base Excess ABG Hemoglobin ABG Carboxyhemoglobin POC ABG HHb (Measured) ABG Methemoglobin ABG O2 Capacity Hgb O2 Saturation FiO2 Sodium Potassium Chloride Carbon Dioxide Anion Gap BUN Creatinine Est GFR ( Amer) Est GFR (Non-Af Amer) POC Glucose (mg/dL) 198 H Random Glucose Calcium Phosphorus Magnesium Total Bilirubin AST ALT Alkaline Phosphatase Total Protein Albumin Globulin Albumin/Globulin Ratio TSH 3rd Generation 0.86 Urine Color Urine Appearance Urine pH Ur Specific [place] Urine Protein Urine Glucose (UA) Urine Ketones Urine Blood Urine Nitrate Urine Bilirubin Urine Urobilinogen Ur Leukocyte Esterase Blood Type Confirm Assessment & Plan - Assessment and Plan (Free Text) Assessment: 67 alanna old [place]in[place] female with hsoty of HTN wh was found at home unresponsive at home. Head CT confirmed acute right cerebral hemispheric infarct including right right anterior, middle and posterior arteries. Hyperdense distal right internal carotid artery suspected to represent acute thrombus and possible right MCA. TPA not recommended due to unknown duration of symptoms. 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 Family at bedside. understand the severity of patients illness and extremely poor prognosis. states he does not want his to suffer. He is awaiting his daughters arrival from [place] later today. In the interim he indicated that his would not want aggressive resuscitation measures under these circumstances and has has made her DNR/DNI. Family is familiar with hospice services and will consider this option once daughter has arrived Plan: Goals of care and advance care planning DNR/DNI Morphine IVP as needed for dyspnea /discomfort Keppra 500 mg twice daily for prevention of seizures Maintain head of bed at 45 degrees Neuro checks
--- NOTE | 2018-06-19 09:40 | RAD ---
Date of service: 06/19/2018 HISTORY: aspiratin pneumonia COMPARISON: 06/18/2018 FINDINGS: LUNGS: No active pulmonary disease. PLEURA: No significant pleural effusion identified, no pneumothorax apparent. CARDIOVASCULAR: Moderate cardiomegaly. Improved vascular and interstitial congestion OSSEOUS STRUCTURES: No significant abnormalities. VISUALIZED UPPER ABDOMEN: Nasogastric tube in satisfactory position OTHER FINDINGS: None. IMPRESSION: Moderate cardiomegaly. Improved vascular and interstitial congestion
--- NOTE | 2018-06-19 09:44 | RAD ---
Date of service: 06/18/2018 PROCEDURE: CHEST RADIOGRAPH, 1 VIEW HISTORY: Code Stroke COMPARISON: None available. FINDINGS: LUNGS: Clear. PLEURA: No pneumothorax or pleural fluid seen. CARDIOVASCULAR: There is moderate cardiomegaly with moderate vascular and interstitial congestion OSSEOUS STRUCTURES: No significant abnormalities. VISUALIZED UPPER ABDOMEN: Normal. OTHER FINDINGS: None. IMPRESSION: There is moderate cardiomegaly with moderate vascular and interstitial congestion
[2018-06-19 10:25] LABS: TROPONIN I 2.44 ng/mL
[2018-06-19] MEDS ORDERED: levETIRAcetam 500mg IVPB 500 MG/100 ML BAG IV SCH (10:30)
[2018-06-19] MEDS ORDERED: Piperacill/Tazo 4.5gm in NS 4.5 GM/100 ML BAG IVPB SCH (12:00)
--- NOTE | 2018-06-19 12:05 | CP.CCUPN ---
<LawrenceNilesh - Last Filed: 06/19/18 12:02> CCU Subjective - Physician Review Subjective (Free Text): 06/19/18 12:02 Nilesh Lawrence DO PGY1 IM [employer] - ICU Progress Note Seen and evaluated this AM at bedside; Family at bedside Patient unresponsive; not following commands ROS Unobtainable CCU Objective - Vital Signs / Intake & Output Vital Signs (Last 4 hours): Vital Signs Pulse Resp BP Pulse Ox 06/19/18 08:15 112/61 06/19/18 08:14 49 L 16 99 06/19/18 08:10 48 L 16 100 Intake and Output (Last 8hrs): Intake & Output 06/18/18 06/19/18 06/19/18 22:59 06:59 14:59 Intake Total 257 Output Total 250 Balance 7 Weight 67.495 kg Intake: IV 257 Left Antecubital 57 Right Hand 200 Output: Urine 250 Urethral (Baptiste) 250 Other: Voiding Method Indwelling Catheter - Physical Exam Physical Exam Limitations: Positive for: Altered Mental Status, Clinical Condition Head: Positive for: Atraumatic Pupils: Positive for: Sluggish, Other (R pupil 4mm; L pupil 2mm both pupils sluggish ). Negative for: PERRL, Non-Reactive, Pinpoint Extroacular Muscles: Positive for: Other (+right gaze preference). Negative for : EOMI, Gaze Palsy, Entrapment Conjunctiva: Positive for: Normal. Negative for: Icteric Neck: Positive for: Normal Range of Motion Respiratory/Chest: Positive for: Clear to Auscultation, Good Air Exchange. Negative for: Respiratory Distress, Accessory Muscle Use Cardiovascular: Positive for: Regular Rate and Rhythm, Normal S1, S2, Bradycardic. Negative for: Murmurs Abdomen: Negative for: Tenderness, Distention, Peritoneal Signs Upper Extremity: Negative for: Cyanosis, Edema Lower Extremity: Positive for: NORMAL PULSES. Negative for: Edema Neurological: Positive for: Other (Not alert, not awake, unresponsive GCS 3-4; Decerebrate posturing to sternal rubs). Negative for: Motor Func Grossly Intact , Normal Sensory Function, Normal Cerebellar Funct, Norm Deep Tendon Reflexes, Gait Normal, Memory Normal, Normal 2Pt Descrimination Skin: Positive for: Warm, Dry, Normal Color. Negative for: Rashes - Medications Active Medications: Active Medications Generic Name Dose Route Start Last Admin Trade Name Freq PRN Reason Stop Dose Admin Albuterol/Ipratropium 3 ml 06/19/18 02:00 06/19/18 08:19 Duoneb 3 Mg/0.5 Mg (3 Ml) Ud IH 3 ml [id number] MARQUIS Administration Levetiracetam 500 mg in 100 mls @ 400 mls/hr 06/19/18 10:30 06/19/18 10:50 Keppra 500mg Ivpb IV 400 mls/hr Q12 MARQUIS Administration Morphine Sulfate 4 mg 06/19/18 09:38 Morphine IVP Q4H PRN Pain, moderate (4-7) - Patient Studies Lab Studies: Lab Studies 06/19/18 06/19/18 06/19/18 Range/Units 10:45 08:32 06:50 WBC (4.5-11.0) 10^3/ul RBC (3.5-6.1) 10^6/uL Hgb (12.0-16.0) g/dL Hct (36.0-48.0) % MCV (80.0-105.0) fl MCH (25.0-35.0) pg MCHC (31.0-37.0) g/dl RDW (11.5-14.5) % Plt Count (120.0-450.0) 10^3/uL MPV (7.0-11.0) fl Gran % (50.0-68.0) % Lymph % (Auto) (22.0-35.0) % [place] % (Auto) (1.0-6.0) % Eos % (Auto) (1.5-5.0) % Baso % (Auto) (0.0-3.0) % Gran # (1.4-6.5) Lymph # (Auto) (1.2-3.4) [place] # (Auto) (0.1-0.6) Eos # (Auto) (0.0-0.7) Baso # (Auto) (0.0-2.0) K/mm3 APTT (25.1-36.5) Seconds pCO2 (35-45) mm/Hg pO2 (80-100) mm/Hg HCO3 (21-28) mmol/L ABG pH (7.35-7.45) ABG Total CO2 (22-28) mmol.L ABG O2 Saturation (95-98) % ABG O2 Content (15-23) ML/dl ABG Base Excess (-2.0-3.0) mmol/L ABG Hemoglobin (11.7-17.4) g/dL ABG Carboxyhemoglobin (0.5-1.5) % POC ABG HHb (Measured) (0-5) % ABG Methemoglobin (0.0-3.0) % ABG O2 Capacity (16-24) mL/dl Hgb O2 Saturation (95.0-98.0) % FiO2 % Sodium (132-148) mmol/L Potassium (3.6-5.0) mmol/L Chloride (98-107) mmol/L Carbon Dioxide (21-33) mmol/L Anion Gap (10-20) BUN (7-21) mg/dL Creatinine (0.7-1.2) mg/dl Est GFR ( Amer) Est GFR (Non-Af Amer) POC Glucose (mg/dL) 198 H (65-110) mg/dL Random Glucose (70-110) mg/dL Calcium (8.4-10.5) mg/dL Phosphorus (2.5-4.5) mg/dL Magnesium (1.7-2.2) mg/dL Total Bilirubin (0.2-1.3) mg/dL AST (14-36) U/L ALT (7-56) U/L Alkaline Phosphatase (38-126) U/L Troponin I 2.28 H* ng/mL Total Protein (5.8-8.3) g/dL Albumin (3.0-4.8) g/dL Globulin gm/dL Albumin/Globulin Ratio (1.1-1.8) TSH 3rd Generation 0.86 (0.46-4.68) mIU/mL Urine Color (YELLOW) Urine Appearance (CLEAR) Urine pH (4.7-8.0) Ur Specific [place] (1.005-1.035) Urine Protein (<30 mg/dL) mg/dL Urine Glucose (UA) (NEGATIVE) mg/dL Urine Ketones (NEGATIVE) mg/dL Urine Blood (NEGATIVE) Urine Nitrate (NEGATIVE) Urine Bilirubin (NEGATIVE) Urine Urobilinogen (<1 E.U./dL) E.U./dL Ur Leukocyte Esterase (NEGATIVE) Darnell/uL Blood Type Confirm 06/19/18 06/19/18 06/19/18 Range/Units 06:50 06:45 06:30 WBC 14.7 H D (4.5-11.0) 10^3/ul RBC 4.51 (3.5-6.1) 10^6/uL Hgb 14.2 (12.0-16.0) g/dL Hct 42.5 (36.0-48.0) % MCV 94.2 (80.0-105.0) fl MCH 31.5 (25.0-35.0) pg MCHC 33.4 (31.0-37.0) g/dl RDW 13.2 (11.5-14.5) % Plt Count 209 (120.0-450.0) 10^3/uL MPV 10.7 (7.0-11.0) fl Gran % 87.8 H (50.0-68.0) % Lymph % (Auto) 7.3 L (22.0-35.0) % [place] % (Auto) 4.9 (1.0-6.0) % Eos % (Auto) 0.0 L (1.5-5.0) % Baso % (Auto) 0.0 (0.0-3.0) % Gran # 12.93 H (1.4-6.5) Lymph # (Auto) 1.1 L (1.2-3.4) [place] # (Auto) 0.7 H (0.1-0.6) Eos # (Auto) 0.0 (0.0-0.7) Baso # (Auto) 0.00 (0.0-2.0) K/mm3 APTT 79.3 H (25.1-36.5) Seconds pCO2 (35-45) mm/Hg pO2 (80-100) mm/Hg HCO3 (21-28) mmol/L ABG pH (7.35-7.45) ABG Total CO2 (22-28) mmol.L ABG O2 Saturation (95-98) % ABG O2 Content (15-23) ML/dl ABG Base Excess (-2.0-3.0) mmol/L ABG Hemoglobin (11.7-17.4) g/dL ABG Carboxyhemoglobin (0.5-1.5) % POC ABG HHb (Measured) (0-5) % ABG Methemoglobin (0.0-3.0) % ABG O2 Capacity (16-24) mL/dl Hgb O2 Saturation (95.0-98.0) % FiO2 % Sodium 138 (132-148) mmol/L Potassium 4.1 (3.6-5.0) mmol/L Chloride 102 (98-107) mmol/L Carbon Dioxide 23 (21-33) mmol/L Anion Gap 17 (10-20) BUN 24 H (7-21) mg/dL Creatinine 0.8 (0.7-1.2) mg/dl Est GFR ( Amer) > 60 Est GFR (Non-Af Amer) > 60 POC Glucose (mg/dL) (65-110) mg/dL Random Glucose 214 H (70-110) mg/dL Calcium 9.4 (8.4-10.5) mg/dL Phosphorus 2.6 (2.5-4.5) mg/dL Magnesium 2.4 H (1.7-2.2) mg/dL Total Bilirubin 1.5 H (0.2-1.3) mg/dL AST 47 H D (14-36) U/L ALT 15 (7-56) U/L Alkaline Phosphatase 85 (38-126) U/L Troponin I 2.44 H* D ng/mL Total Protein 8.0 (5.8-8.3) g/dL Albumin 4.4 (3.0-4.8) g/dL Globulin 3.7 gm/dL Albumin/Globulin Ratio 1.2 (1.1-1.8) TSH 3rd Generation (0.46-4.68) mIU/mL Urine Color (YELLOW) Urine Appearance (CLEAR) Urine pH (4.7-8.0) Ur Specific [place] (1.005-1.035) Urine Protein (<30 mg/dL) mg/dL Urine Glucose (UA) (NEGATIVE) mg/dL Urine Ketones (NEGATIVE) mg/dL Urine Blood (NEGATIVE) Urine Nitrate (NEGATIVE) Urine Bilirubin (NEGATIVE) Urine Urobilinogen (<1 E.U./dL) E.U./dL Ur Leukocyte Esterase (NEGATIVE) Darnell/uL Blood Type Confirm 06/19/18 06/18/18 06/18/18 Range/Units 00:38 23:40 21:52 WBC (4.5-11.0) 10^3/ul RBC (3.5-6.1) 10^6/uL Hgb (12.0-16.0) g/dL Hct (36.0-48.0) % MCV (80.0-105.0) fl MCH (25.0-35.0) pg MCHC (31.0-37.0) g/dl RDW (11.5-14.5) % Plt Count (120.0-450.0) 10^3/uL MPV (7.0-11.0) fl Gran % (50.0-68.0) % Lymph % (Auto) (22.0-35.0) % [place] % (Auto) (1.0-6.0) % Eos % (Auto) (1.5-5.0) % Baso % (Auto) (0.0-3.0) % Gran # (1.4-6.5) Lymph # (Auto) (1.2-3.4) [place] # (Auto) (0.1-0.6) Eos # (Auto) (0.0-0.7) Baso # (Auto) (0.0-2.0) K/mm3 APTT (25.1-36.5) Seconds pCO2 42 (35-45) mm/Hg pO2 172.0 H (80-100) mm/Hg HCO3 23.7 (21-28) mmol/L ABG pH 7.36 (7.35-7.45) ABG Total CO2 25.0 (22-28) mmol.L ABG O2 Saturation 100.0 H (95-98) % ABG O2 Content 20.8 (15-23) ML/dl ABG Base Excess -1.8 (-2.0-3.0) mmol/L ABG Hemoglobin 14.9 (11.7-17.4) g/dL ABG Carboxyhemoglobin 1.5 (0.5-1.5) % POC ABG HHb (Measured) 0 (0-5) % ABG Methemoglobin 0.8 (0.0-3.0) % ABG O2 Capacity 20.8 (16-24) mL/dl Hgb O2 Saturation 97.6 (95.0-98.0) % FiO2 50.0 % Sodium (132-148) mmol/L Potassium (3.6-5.0) mmol/L Chloride (98-107) mmol/L Carbon Dioxide (21-33) mmol/L Anion Gap (10-20) BUN (7-21) mg/dL Creatinine (0.7-1.2) mg/dl Est GFR ( Amer) Est GFR (Non-Af Amer) POC Glucose (mg/dL) (65-110) mg/dL Random Glucose (70-110) mg/dL Calcium (8.4-10.5) mg/dL Phosphorus (2.5-4.5) mg/dL Magnesium (1.7-2.2) mg/dL Total Bilirubin (0.2-1.3) mg/dL AST (14-36) U/L ALT (7-56) U/L Alkaline Phosphatase (38-126) U/L Troponin I ng/mL Total Protein (5.8-8.3) g/dL Albumin (3.0-4.8) g/dL Globulin gm/dL Albumin/Globulin Ratio (1.1-1.8) TSH 3rd Generation (0.46-4.68) mIU/mL Urine Color Yellow (YELLOW) Urine Appearance Clear (CLEAR) Urine pH 6.0 (4.7-8.0) Ur Specific [place] 1.020 (1.005-1.035) Urine Protein Negative (<30 mg/dL) mg/dL Urine Glucose (UA) 100 H (NEGATIVE) mg/dL Urine Ketones Trace H (NEGATIVE) mg/dL Urine Blood Negative (NEGATIVE) Urine Nitrate Negative (NEGATIVE) Urine Bilirubin Negative (NEGATIVE) Urine Urobilinogen 0.2 (<1 E.U./dL) E.U./dL Ur Leukocyte Esterase Negative (NEGATIVE) Darnell/uL Blood Type Confirm A POSITIVE Laboratory Results - last 24 hr 06/18/18 06/18/18 06/19/18 21:52 23:40 00:38 WBC RBC Hgb Hct MCV MCH MCHC RDW Plt Count MPV Gran % Lymph % (Auto) [place] % (Auto) Eos % (Auto) Baso % (Auto) Gran # Lymph # (Auto) [place] # (Auto) Eos # (Auto) Baso # (Auto) APTT pCO2 42 pO2 172.0 H HCO3 23.7 ABG pH 7.36 ABG Total CO2 25.0 ABG O2 Saturation 100.0 H ABG O2 Content 20.8 ABG Base Excess -1.8 ABG Hemoglobin 14.9 ABG Carboxyhemoglobin 1.5 POC ABG HHb (Measured) 0 ABG Methemoglobin 0.8 ABG O2 Capacity 20.8 Hgb O2 Saturation 97.6 FiO2 50.0 Sodium Potassium Chloride Carbon Dioxide Anion Gap BUN Creatinine Est GFR ( Amer) Est GFR (Non-Af Amer) POC Glucose (mg/dL) Random Glucose Calcium Phosphorus Magnesium Total Bilirubin AST ALT Alkaline Phosphatase Troponin I Total Protein Albumin Globulin Albumin/Globulin Ratio TSH 3rd Generation Urine Color Yellow Urine Appearance Clear Urine pH 6.0 Ur Specific [place] 1.020 Urine Protein Negative Urine Glucose (UA) 100 H Urine Ketones Trace H Urine Blood Negative Urine Nitrate Negative Urine Bilirubin Negative Urine Urobilinogen 0.2 Ur Leukocyte Esterase Negative Blood Type Confirm A POSITIVE 06/19/18 06/19/18 06/19/18 06:30 06:45 06:50 WBC 14.7 H D RBC 4.51 Hgb 14.2 Hct 42.5 MCV 94.2 MCH 31.5 MCHC 33.4 RDW 13.2 Plt Count 209 MPV 10.7 Gran % 87.8 H Lymph % (Auto) 7.3 L [place] % (Auto) 4.9 Eos % (Auto) 0.0 L Baso % (Auto) 0.0 Gran # 12.93 H Lymph # (Auto) 1.1 L [place] # (Auto) 0.7 H Eos # (Auto) 0.0 Baso # (Auto) 0.00 APTT 79.3 H pCO2 pO2 HCO3 ABG pH ABG Total CO2 ABG O2 Saturation ABG O2 Content ABG Base Excess ABG Hemoglobin ABG Carboxyhemoglobin POC ABG HHb (Measured) ABG Methemoglobin ABG O2 Capacity Hgb O2 Saturation FiO2 Sodium 138 Potassium 4.1 Chloride 102 Carbon Dioxide 23 Anion Gap 17 BUN 24 H Creatinine 0.8 Est GFR ( Amer) > 60 Est GFR (Non-Af Amer) > 60 POC Glucose (mg/dL) Random Glucose 214 H Calcium 9.4 Phosphorus 2.6 Magnesium 2.4 H Total Bilirubin 1.5 H AST 47 H D ALT 15 Alkaline Phosphatase 85 Troponin I 2.44 H* D Total Protein 8.0 Albumin 4.4 Globulin 3.7 Albumin/Globulin Ratio 1.2 TSH 3rd Generation Urine Color Urine Appearance Urine pH Ur Specific [place] Urine Protein Urine Glucose (UA) Urine Ketones Urine Blood Urine Nitrate Urine Bilirubin Urine Urobilinogen Ur Leukocyte Esterase Blood Type Confirm 06/19/18 06/19/18 06/19/18 06:50 08:32 10:45 WBC RBC Hgb Hct MCV MCH MCHC RDW Plt Count MPV Gran % Lymph % (Auto) [place] % (Auto) Eos % (Auto) Baso % (Auto) Gran # Lymph # (Auto) [place] # (Auto) Eos # (Auto) Baso # (Auto) APTT pCO2 pO2 HCO3 ABG pH ABG Total CO2 ABG O2 Saturation ABG O2 Content ABG Base Excess ABG Hemoglobin ABG Carboxyhemoglobin POC ABG HHb (Measured) ABG Methemoglobin ABG O2 Capacity Hgb O2 Saturation FiO2 Sodium Potassium Chloride Carbon Dioxide Anion Gap BUN Creatinine Est GFR ( Amer) Est GFR (Non-Af Amer) POC Glucose (mg/dL) 198 H Random Glucose Calcium Phosphorus Magnesium Total Bilirubin AST ALT Alkaline Phosphatase Troponin I 2.28 H* Total Protein Albumin Globulin Albumin/Globulin Ratio TSH 3rd Generation 0.86 Urine Color Urine Appearance Urine pH Ur Specific [place] Urine Protein Urine Glucose (UA) Urine Ketones Urine Blood Urine Nitrate Urine Bilirubin Urine Urobilinogen Ur Leukocyte Esterase Blood Type Confirm Fingerstick Blood Sugar Results: 171 Review of Systems - Review of Systems Systems not reviewed;Unavailable: Acuity of Condition Assessment/Plan - Assessment and Plan (Free Text) Assessment: 67F admitted to ICU for extensive R parietal stroke; Over night patient was noted to have lessening responsiveness and repeated examination found patient to have unequal pupils w/ R pupil dilated to 4mm; L pupil constricted to 2mm; Both pupils sluggish/ minimally reactive to light; On exam, patient was found to be unresponsive w/ decerebrate posturing; Repeat CT of the head found worsening midline shift and uncal herniation as above Neuro surgery was contacted this morning and reported no neurosurgical intervention at this time Palliative care consulted and following; Family at bedside agree to pursue comfort measures only, patient status chagned to DNR / DNI. Pastoral Care consulted. Family is planning for hospice. Plan: Will continue w/ comfort measures only at this time Patient seen, examined, discussed w/ attending physician Dr. Nguyen Lawrence DO PGY1 Internal Medicine [employer] - Date & Time Date: 06/19/18 Time: 12:29 <Guillermo Cedillo - Last Filed: 06/19/18 16:56> CCU Objective - Vital Signs / Intake & Output Intake and Output (Last 8hrs): Intake & Output 06/19/18 06/19/18 06/19/18 06:59 14:59 22:59 Intake Total 257 Output Total 250 Balance 7 Weight 148 lb 12.8 oz Intake: IV 257 Left Antecubital 57 Right Hand 200 Output: Urine 250 Urethral (Baptiste) 250 Other: Voiding Method Indwelling Catheter - Medications Active Medications: Active Medications Generic Name Dose Route Start Last Admin Trade Name Freq PRN Reason Stop Dose Admin Levetiracetam 500 mg in 100 mls @ 400 mls/hr 06/19/18 10:30 06/19/18 10:50 Keppra 500mg Ivpb IV 400 mls/hr Q12 MARQUIS Administration Morphine Sulfate 4 mg 06/19/18 09:38 Morphine IVP Q4H PRN Pain, moderate (4-7) - Patient Studies Lab Studies: Lab Studies 06/19/18 06/19/18 06/19/18 Range/Units 10:45 08:32 06:50 WBC (4.5-11.0) 10^3/ul RBC (3.5-6.1) 10^6/uL Hgb (12.0-16.0) g/dL Hct (36.0-48.0) % MCV (80.0-105.0) fl MCH (25.0-35.0) pg MCHC (31.0-37.0) g/dl RDW (11.5-14.5) % Plt Count (120.0-450.0) 10^3/uL MPV (7.0-11.0) fl Gran % (50.0-68.0) % Lymph % (Auto) (22.0-35.0) % [place] % (Auto) (1.0-6.0) % Eos % (Auto) (1.5-5.0) % Baso % (Auto) (0.0-3.0) % Gran # (1.4-6.5) Lymph # (Auto) (1.2-3.4) [place] # (Auto) (0.1-0.6) Eos # (Auto) (0.0-0.7) Baso # (Auto) (0.0-2.0) K/mm3 APTT (25.1-36.5) Seconds pCO2 (35-45) mm/Hg pO2 (80-100) mm/Hg HCO3 (21-28) mmol/L ABG pH (7.35-7.45) ABG Total CO2 (22-28) mmol.L ABG O2 Saturation (95-98) % ABG O2 Content (15-23) ML/dl ABG Base Excess (-2.0-3.0) mmol/L ABG Hemoglobin (11.7-17.4) g/dL ABG Carboxyhemoglobin (0.5-1.5) % POC ABG HHb (Measured) (0-5) % ABG Methemoglobin (0.0-3.0) % ABG O2 Capacity (16-24) mL/dl Hgb O2 Saturation (95.0-98.0) % FiO2 % Sodium (132-148) mmol/L Potassium (3.6-5.0) mmol/L Chloride (98-107) mmol/L Carbon Dioxide (21-33) mmol/L Anion Gap (10-20) BUN (7-21) mg/dL Creatinine (0.7-1.2) mg/dl Est GFR ( Amer) Est GFR (Non-Af Amer) POC Glucose (mg/dL) 198 H (65-110) mg/dL Random Glucose (70-110) mg/dL Calcium (8.4-10.5) mg/dL Phosphorus (2.5-4.5) mg/dL Magnesium (1.7-2.2) mg/dL Total Bilirubin (0.2-1.3) mg/dL AST (14-36) U/L ALT (7-56) U/L Alkaline Phosphatase (38-126) U/L Troponin I 2.28 H* ng/mL Total Protein (5.8-8.3) g/dL Albumin (3.0-4.8) g/dL Globulin gm/dL Albumin/Globulin Ratio (1.1-1.8) TSH 3rd Generation 0.86 (0.46-4.68) mIU/mL Urine Color (YELLOW) Urine Appearance (CLEAR) Urine pH (4.7-8.0) Ur Specific [place] (1.005-1.035) Urine Protein (<30 mg/dL) mg/dL Urine Glucose (UA) (NEGATIVE) mg/dL Urine Ketones (NEGATIVE) mg/dL Urine Blood (NEGATIVE) Urine Nitrate (NEGATIVE) Urine Bilirubin (NEGATIVE) Urine Urobilinogen (<1 E.U./dL) E.U./dL Ur Leukocyte Esterase (NEGATIVE) Darnell/uL Blood Type Confirm 06/19/18 06/19/18 06/19/18 Range/Units 06:50 06:45 06:30 WBC 14.7 H D (4.5-11.0) 10^3/ul RBC 4.51 (3.5-6.1) 10^6/uL Hgb 14.2 (12.0-16.0) g/dL Hct 42.5 (36.0-48.0) % MCV 94.2 (80.0-105.0) fl MCH 31.5 (25.0-35.0) pg MCHC 33.4 (31.0-37.0) g/dl RDW 13.2 (11.5-14.5) % Plt Count 209 (120.0-450.0) 10^3/uL MPV 10.7 (7.0-11.0) fl Gran % 87.8 H (50.0-68.0) % Lymph % (Auto) 7.3 L (22.0-35.0) % [place] % (Auto) 4.9 (1.0-6.0) % Eos % (Auto) 0.0 L (1.5-5.0) % Baso % (Auto) 0.0 (0.0-3.0) % Gran # 12.93 H (1.4-6.5) Lymph # (Auto) 1.1 L (1.2-3.4) [place] # (Auto) 0.7 H (0.1-0.6) Eos # (Auto) 0.0 (0.0-0.7) Baso # (Auto) 0.00 (0.0-2.0) K/mm3 APTT 79.3 H (25.1-36.5) Seconds pCO2 (35-45) mm/Hg pO2 (80-100) mm/Hg HCO3 (21-28) mmol/L ABG pH (7.35-7.45) ABG Total CO2 (22-28) mmol.L ABG O2 Saturation (95-98) % ABG O2 Content (15-23) ML/dl ABG Base Excess (-2.0-3.0) mmol/L ABG Hemoglobin (11.7-17.4) g/dL ABG Carboxyhemoglobin (0.5-1.5) % POC ABG HHb (Measured) (0-5) % ABG Methemoglobin (0.0-3.0) % ABG O2 Capacity (16-24) mL/dl Hgb O2 Saturation (95.0-98.0) % FiO2 % Sodium 138 (132-148) mmol/L Potassium 4.1 (3.6-5.0) mmol/L Chloride 102 (98-107) mmol/L Carbon Dioxide 23 (21-33) mmol/L Anion Gap 17 (10-20) BUN 24 H (7-21) mg/dL Creatinine 0.8 (0.7-1.2) mg/dl Est GFR ( Amer) > 60 Est GFR (Non-Af Amer) > 60 POC Glucose (mg/dL) (65-110) mg/dL Random Glucose 214 H (70-110) mg/dL Calcium 9.4 (8.4-10.5) mg/dL Phosphorus 2.6 (2.5-4.5) mg/dL Magnesium 2.4 H (1.7-2.2) mg/dL Total Bilirubin 1.5 H (0.2-1.3) mg/dL AST 47 H D (14-36) U/L ALT 15 (7-56) U/L Alkaline Phosphatase 85 (38-126) U/L Troponin I 2.44 H* D ng/mL Total Protein 8.0 (5.8-8.3) g/dL Albumin 4.4 (3.0-4.8) g/dL Globulin 3.7 gm/dL Albumin/Globulin Ratio 1.2 (1.1-1.8) TSH 3rd Generation (0.46-4.68) mIU/mL Urine Color (YELLOW) Urine Appearance (CLEAR) Urine pH (4.7-8.0) Ur Specific [place] (1.005-1.035) Urine Protein (<30 mg/dL) mg/dL Urine Glucose (UA) (NEGATIVE) mg/dL Urine Ketones (NEGATIVE) mg/dL Urine Blood (NEGATIVE) Urine Nitrate (NEGATIVE) Urine Bilirubin (NEGATIVE) Urine Urobilinogen (<1 E.U./dL) E.U./dL Ur Leukocyte Esterase (NEGATIVE) Darnell/uL Blood Type Confirm 06/19/18 06/18/18 06/18/18 Range/Units 00:38 23:40 21:52 WBC (4.5-11.0) 10^3/ul RBC (3.5-6.1) 10^6/uL Hgb (12.0-16.0) g/dL Hct (36.0-48.0) % MCV (80.0-105.0) fl MCH (25.0-35.0) pg MCHC (31.0-37.0) g/dl RDW (11.5-14.5) % Plt Count (120.0-450.0) 10^3/uL MPV (7.0-11.0) fl Gran % (50.0-68.0) % Lymph % (Auto) (22.0-35.0) % [place] % (Auto) (1.0-6.0) % Eos % (Auto) (1.5-5.0) % Baso % (Auto) (0.0-3.0) % Gran # (1.4-6.5) Lymph # (Auto) (1.2-3.4) [place] # (Auto) (0.1-0.6) Eos # (Auto) (0.0-0.7) Baso # (Auto) (0.0-2.0) K/mm3 APTT (25.1-36.5) Seconds pCO2 42 (35-45) mm/Hg pO2 172.0 H (80-100) mm/Hg HCO3 23.7 (21-28) mmol/L ABG pH 7.36 (7.35-7.45) ABG Total CO2 25.0 (22-28) mmol.L ABG O2 Saturation 100.0 H (95-98) % ABG O2 Content 20.8 (15-23) ML/dl ABG Base Excess -1.8 (-2.0-3.0) mmol/L ABG Hemoglobin 14.9 (11.7-17.4) g/dL ABG Carboxyhemoglobin 1.5 (0.5-1.5) % POC ABG HHb (Measured) 0 (0-5) % ABG Methemoglobin 0.8 (0.0-3.0) % ABG O2 Capacity 20.8 (16-24) mL/dl Hgb O2 Saturation 97.6 (95.0-98.0) % FiO2 50.0 % Sodium (132-148) mmol/L Potassium (3.6-5.0) mmol/L Chloride (98-107) mmol/L Carbon Dioxide (21-33) mmol/L Anion Gap (10-20) BUN (7-21) mg/dL Creatinine (0.7-1.2) mg/dl Est GFR ( Amer) Est GFR (Non-Af Amer) POC Glucose (mg/dL) (65-110) mg/dL Random Glucose (70-110) mg/dL Calcium (8.4-10.5) mg/dL Phosphorus (2.5-4.5) mg/dL Magnesium (1.7-2.2) mg/dL Total Bilirubin (0.2-1.3) mg/dL AST (14-36) U/L ALT (7-56) U/L Alkaline Phosphatase (38-126) U/L Troponin I ng/mL Total Protein (5.8-8.3) g/dL Albumin (3.0-4.8) g/dL Globulin gm/dL Albumin/Globulin Ratio (1.1-1.8) TSH 3rd Generation (0.46-4.68) mIU/mL Urine Color Yellow (YELLOW) Urine Appearance Clear (CLEAR) Urine pH 6.0 (4.7-8.0) Ur Specific [place] 1.020 (1.005-1.035) Urine Protein Negative (<30 mg/dL) mg/dL Urine Glucose (UA) 100 H (NEGATIVE) mg/dL Urine Ketones Trace H (NEGATIVE) mg/dL Urine Blood Negative (NEGATIVE) Urine Nitrate Negative (NEGATIVE) Urine Bilirubin Negative (NEGATIVE) Urine Urobilinogen 0.2 (<1 E.U./dL) E.U./dL Ur Leukocyte Esterase Negative (NEGATIVE) Darnell/uL Blood Type Confirm A POSITIVE Laboratory Results - last 24 hr 06/18/18 06/18/18 06/19/18 21:52 23:40 00:38 WBC RBC Hgb Hct MCV MCH MCHC RDW Plt Count MPV Gran % Lymph % (Auto) [place] % (Auto) Eos % (Auto) Baso % (Auto) Gran # Lymph # (Auto) [place] # (Auto) Eos # (Auto) Baso # (Auto) APTT pCO2 42 pO2 172.0 H HCO3 23.7 ABG pH 7.36 ABG Total CO2 25.0 ABG O2 Saturation 100.0 H ABG O2 Content 20.8 ABG Base Excess -1.8 ABG Hemoglobin 14.9 ABG Carboxyhemoglobin 1.5 POC ABG HHb (Measured) 0 ABG Methemoglobin 0.8 ABG O2 Capacity 20.8 Hgb O2 Saturation 97.6 FiO2 50.0 Sodium Potassium Chloride Carbon Dioxide Anion Gap BUN Creatinine Est GFR ( Amer) Est GFR (Non-Af Amer) POC Glucose (mg/dL) Random Glucose Calcium Phosphorus Magnesium Total Bilirubin AST ALT Alkaline Phosphatase Troponin I Total Protein Albumin Globulin Albumin/Globulin Ratio TSH 3rd Generation Urine Color Yellow Urine Appearance Clear Urine pH 6.0 Ur Specific [place] 1.020 Urine Protein Negative Urine Glucose (UA) 100 H Urine Ketones Trace H Urine Blood Negative Urine Nitrate Negative Urine Bilirubin Negative Urine Urobilinogen 0.2 Ur Leukocyte Esterase Negative Blood Type Confirm A POSITIVE 06/19/18 06/19/18 06/19/18 06:30 06:45 06:50 WBC 14.7 H D RBC 4.51 Hgb 14.2 Hct 42.5 MCV 94.2 MCH 31.5 MCHC 33.4 RDW 13.2 Plt Count 209 MPV 10.7 Gran % 87.8 H Lymph % (Auto) 7.3 L [place] % (Auto) 4.9 Eos % (Auto) 0.0 L Baso % (Auto) 0.0 Gran # 12.93 H Lymph # (Auto) 1.1 L [place] # (Auto) 0.7 H Eos # (Auto) 0.0 Baso # (Auto) 0.00 APTT 79.3 H pCO2 pO2 HCO3 ABG pH ABG Total CO2 ABG O2 Saturation ABG O2 Content ABG Base Excess ABG Hemoglobin ABG Carboxyhemoglobin POC ABG HHb (Measured) ABG Methemoglobin ABG O2 Capacity Hgb O2 Saturation FiO2 Sodium 138 Potassium 4.1 Chloride 102 Carbon Dioxide 23 Anion Gap 17 BUN 24 H Creatinine 0.8 Est GFR ( Amer) > 60 Est GFR (Non-Af Amer) > 60 POC Glucose (mg/dL) Random Glucose 214 H Calcium 9.4 Phosphorus 2.6 Magnesium 2.4 H Total Bilirubin 1.5 H AST 47 H D ALT 15 Alkaline Phosphatase 85 Troponin I 2.44 H* D Total Protein 8.0 Albumin 4.4 Globulin 3.7 Albumin/Globulin Ratio 1.2 TSH 3rd Generation Urine Color Urine Appearance Urine pH Ur Specific [place] Urine Protein Urine Glucose (UA) Urine Ketones Urine Blood Urine Nitrate Urine Bilirubin Urine Urobilinogen Ur Leukocyte Esterase Blood Type Confirm 06/19/18 06/19/18 06/19/18 06:50 08:32 10:45 WBC RBC Hgb Hct MCV MCH MCHC RDW Plt Count MPV Gran % Lymph % (Auto) [place] % (Auto) Eos % (Auto) Baso % (Auto) Gran # Lymph # (Auto) [place] # (Auto) Eos # (Auto) Baso # (Auto) APTT pCO2 pO2 HCO3 ABG pH ABG Total CO2 ABG O2 Saturation ABG O2 Content ABG Base Excess ABG Hemoglobin ABG Carboxyhemoglobin POC ABG HHb (Measured) ABG Methemoglobin ABG O2 Capacity Hgb O2 Saturation FiO2 Sodium Potassium Chloride Carbon Dioxide Anion Gap BUN Creatinine Est GFR ( Amer) Est GFR (Non-Af Amer) POC Glucose (mg/dL) 198 H Random Glucose Calcium Phosphorus Magnesium Total Bilirubin AST ALT Alkaline Phosphatase Troponin I 2.28 H* Total Protein Albumin Globulin Albumin/Globulin Ratio TSH 3rd Generation 0.86 Urine Color Urine Appearance Urine pH Ur Specific [place] Urine Protein Urine Glucose (UA) Urine Ketones Urine Blood Urine Nitrate Urine Bilirubin Urine Urobilinogen Ur Leukocyte Esterase Blood Type Confirm Addendum Addendum: 06/19/18 16:52 ICU Attending Addendum: Patient seen and examined. Case reviewed on round with housestaff. Agree with resident note above with the following additions/exceptions: 67F found unresponsive, CT head show acute right cerebral hemispheric infarct. Not tpa candidate due to downtime like >[address] worse edema and shift Neurosurg contacted - no intervention I d/w her , sister at bedside and her daughter via phone in [place] that prognosis was poor and I did not think there would be a benefit in intubation or CPR. They agreed that comfort was a priorty at this point. Made her DNR/DNI Seen by [facility] care as well [facility] Patients daughter flew in from [facility], I met with her as well once she arrived. Patient passed at 4:43pm with family at bedside Guillermo Cedillo MD Accountancy Professor
--- NOTE | 2018-06-19 16:29 | CP.PCM.PN ---
Subjective - Date & Time of Evaluation Date of Evaluation: 06/19/18 Time of Evaluation: 09:00 - Subjective Subjective: Pt seen and examined in the ICU this morning. Pt unresponsive and unable to answer questions. Objective - Vital Signs/Intake and Output Vital Signs (last 24 hours): Temp Pulse Resp BP Pulse Ox 97.6 F 49 L 16 112/61 99 06/19/18 01:08 06/19/18 08:14 06/19/18 08:14 06/19/18 08:15 06/19/18 08:14 Intake and Output: 06/19/18 06/19/18 06:59 18:59 Intake Total 257 Output Total 250 Balance 7 - Medications Medications: Current Medications Levetiracetam (Keppra 500mg Ivpb) 500 mg in 100 mls @ 400 mls/hr IV Q12 MARQUIS Last Admin: 06/19/18 10:50 Dose: 400 mls/hr Morphine Sulfate (Morphine) 4 mg IVP Q4H PRN PRN Reason: Pain, moderate (4-7) - Labs Labs: 06/19/18 06:45 06/19/18 06:50 PT 11.3 SECONDS (9.4-12.5) 06/18/18 21:10 INR 0.99 06/18/18 21:10 APTT 79.3 Seconds (25.1-36.5) H 06/19/18 06:30 - Respiratory Exam Respiratory Exam: Clear to Ausculation Bilateral, NORMAL BREATHING PATTERN. absent: Accessory Muscle Use, Respiratory Distress - Cardiovascular Exam Cardiovascular Exam: RRR, +S1, +S2. absent: Diastolic murmur, Murmur - Neurological Exam Neurological Exam: Altered Assessment and Plan - Assessment and Plan (Free Text) Assessment: Pt is a 67 yo female with a PMH of HTN, and asthma who was brought in by ambulance due to inability to speak and left-sided weakness noted by . Noncontrast Head CT Findings compatible with acute right cerebral hemispheric infarct, including right SARIKA, right MCA, and right OYSTER GROWER territories. 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 There is uncal herniation with compression of the midbrain and obliteration of the basal cisterns. - Spoke with family at bedside about prognosis - Neurosurgery was consulted and determined that no intervention was indicated or could be performed - Palliative consult: [place], DNR/DNI, Morphine IVP, Keppra seizure prevention, HOB 5 degrees. has indicated that his would not want aggressive resuscitation measures under these circumstances. Family will consider hospice once their daughter arrives from [place]. - Patient passed at 4:43pm with family at bedside. Pt seen, examined, assessment and plan discussed with Dr Campbell. Tan Guevara PGY1 Internal Medicine Resident
--- NOTE | 2018-06-19 16:59 | CP.PCM.PRO ---
Addendum Addendum: 06/19/18 16:57 PCC Attending Called to see patient for asystole on monitor. On exam the patient did not respond to verbal or physical stimuli. Absent heart and breath sounds. Absent peripheral pulses. Pupils are fixed and dilated. Patient pronounced at 16: 43 (24 hour format). Family at bedside. Guillermo Cedillo MD
[2018-06-19 18:21] VITALS: BP 179/123; PULSE 36; RESP 7; O2SAT 14
--- NOTE | 2018-06-19 18:35 | CP.PCM.PN ---
Subjective - Date & Time of Evaluation Date of Evaluation: 06/19/18 Time of Evaluation: 18:34 - Subjective Subjective: Call w/ ME completed at 1833; Patient released at 1833 Discussed w/ attending Dr. Cedillo Objective - Vital Signs/Intake and Output Vital Signs (last 24 hours): Temp Pulse Resp BP Pulse Ox 97.6 F 36 L 7 L 179/123 H 14 L 06/19/18 01:08 06/19/18 16:32 06/19/18 16:33 06/19/18 16:15 06/19/18 16:20 Intake and Output: 06/19/18 06/19/18 06:59 18:59 Intake Total 257 Output Total 250 Balance 7 - Medications Medications: Current Medications Levetiracetam (Keppra 500mg Ivpb) 500 mg in 100 mls @ 400 mls/hr IV Q12 MARQUIS Last Admin: 06/19/18 10:50 Dose: 400 mls/hr Morphine Sulfate (Morphine) 4 mg IVP Q4H PRN PRN Reason: Pain, moderate (4-7) - Labs Labs: 06/19/18 06:45 06/19/18 06:50 PT 11.3 SECONDS (9.4-12.5) 06/18/18 21:10 INR 0.99 06/18/18 21:10 APTT 79.3 Seconds (25.1-36.5) H 06/19/18 06:30
--- NOTE | 2018-06-19 21:09 | CARD ---
APPROVED REPORT Date of service: 06/18/2018 EKG Measurement Heart [id number] <Conclusion> Possible arm lead reversal, Sinus rhythm with premature atrial complexes with aberrant conduction Low voltage QRS Lateral infarct, age undetermined Abnormal ECG
--- NOTE | 2018-06-20 16:36 | CP.PCM.DIS ---
Provider - Provider Date of Admission: 06/18/18 21:31 Attending physician: Beth Campbell MD Primary care physician: Jeffery Sierra MD Time Spent in preparation of Discharge (in minutes): 45 Diagnosis - Discharge Diagnosis (1) CVA (cerebral vascular accident) Status: Acute Priority: High Hospital Course - Lab Results Lab Results: Most Recent Lab Values WBC 14.7 10^3/ul (4.5-11.0) H D 06/19/18 06:45 RBC 4.51 10^6/uL (3.5-6.1) 06/19/18 06:45 Hgb 14.2 g/dL (12.0-16.0) 06/19/18 06:45 Hct 42.5 % (36.0-48.0) 06/19/18 06:45 MCV 94.2 fl (80.0-105.0) 06/19/18 06:45 MCH 31.5 pg (25.0-35.0) 06/19/18 06:45 MCHC 33.4 g/dl (31.0-37.0) 06/19/18 06:45 RDW 13.2 % (11.5-14.5) 06/19/18 06:45 Plt Count 209 10^3/uL (120.0-450.0) 06/19/18 06:45 MPV 10.7 fl (7.0-11.0) 06/19/18 06:45 Gran % 87.8 % (50.0-68.0) H 06/19/18 06:45 Lymph % (Auto) 7.3 % (22.0-35.0) L 06/19/18 06:45 Weston % (Auto) 4.9 % (1.0-6.0) 06/19/18 06:45 Eos % (Auto) 0.0 % (1.5-5.0) L 06/19/18 06:45 Baso % (Auto) 0.0 % (0.0-3.0) 06/19/18 06:45 Gran # 12.93 (1.4-6.5) H 06/19/18 06:45 Lymph # (Auto) 1.1 (1.2-3.4) L 06/19/18 06:45 Weston # (Auto) 0.7 (0.1-0.6) H 06/19/18 06:45 Eos # (Auto) 0.0 (0.0-0.7) 06/19/18 06:45 Baso # (Auto) 0.00 K/mm3 (0.0-2.0) 06/19/18 06:45 PT 11.3 SECONDS (9.4-12.5) 06/18/18 21:10 INR 0.99 06/18/18 21:10 APTT 79.3 Seconds (25.1-36.5) H 06/19/18 06:30 pCO2 42 mm/Hg (35-45) 06/19/18 00:38 pO2 172.0 mm/Hg (80-100) H 06/19/18 00:38 HCO3 23.7 mmol/L (21-28) 06/19/18 00:38 ABG pH 7.36 (7.35-7.45) 06/19/18 00:38 ABG Total CO2 25.0 mmol.L (22-28) 06/19/18 00:38 ABG O2 Saturation 100.0 % (95-98) H 06/19/18 00:38 ABG O2 Content 20.8 ML/dl (15-23) 06/19/18 00:38 ABG Base Excess -1.8 mmol/L (-2.0-3.0) 06/19/18 00:38 ABG Hemoglobin 14.9 g/dL (11.7-17.4) 06/19/18 00:38 ABG Carboxyhemoglobin 1.5 % (0.5-1.5) 06/19/18 00:38 POC ABG HHb (Measured) 0 % (0-5) 06/19/18 00:38 ABG Methemoglobin 0.8 % (0.0-3.0) 06/19/18 00:38 ABG O2 Capacity 20.8 mL/dl (16-24) 06/19/18 00:38 Hgb O2 Saturation 97.6 % (95.0-98.0) 06/19/18 00:38 FiO2 50.0 % 06/19/18 00:38 Sodium 138 mmol/L (132-148) 06/19/18 06:50 Potassium 4.1 mmol/L (3.6-5.0) 06/19/18 06:50 Chloride 102 mmol/L (98-107) 06/19/18 06:50 Carbon Dioxide 23 mmol/L (21-33) 06/19/18 06:50 Anion Gap 17 (10-20) 06/19/18 06:50 BUN 24 mg/dL (7-21) H 06/19/18 06:50 Creatinine 0.8 mg/dl (0.7-1.2) 06/19/18 06:50 Est GFR ( Amer) > 60 06/19/18 06:50 Est GFR (Non-Af Amer) > 60 06/19/18 06:50 POC Glucose (mg/dL) 198 mg/dL (65-110) H 06/19/18 08:32 Random Glucose 214 mg/dL (70-110) H 06/19/18 06:50 Hemoglobin A1c 5.8 % (4.2-6.5) 06/18/18 21:10 Calcium 9.4 mg/dL (8.4-10.5) 06/19/18 06:50 Phosphorus 2.6 mg/dL (2.5-4.5) 06/19/18 06:50 Magnesium 2.4 mg/dL (1.7-2.2) H 06/19/18 06:50 Total Bilirubin 1.5 mg/dL (0.2-1.3) H 06/19/18 06:50 AST 47 U/L (14-36) H D 06/19/18 06:50 ALT 15 U/L (7-56) 06/19/18 06:50 Alkaline Phosphatase 85 U/L (38-126) 06/19/18 06:50 Troponin I 2.28 ng/mL H* 06/19/18 10:45 NT-Pro-B Natriuret Pep 720 pg/mL (0-450) H 06/18/18 21:10 Total Protein 8.0 g/dL (5.8-8.3) 06/19/18 06:50 Albumin 4.4 g/dL (3.0-4.8) 06/19/18 06:50 Globulin 3.7 gm/dL 06/19/18 06:50 Albumin/Globulin Ratio 1.2 (1.1-1.8) 06/19/18 06:50 Triglycerides 127 mg/dL (35-160) 06/18/18 21:10 Cholesterol 268 mg/dL (130-200) H 06/18/18 21:10 LDL Cholesterol Direct 160 mg/dL (0-129) H 06/18/18 21:10 HDL Cholesterol 64 mg/dL (29-60) H 06/18/18 21:10 TSH 3rd Generation 0.86 mIU/mL (0.46-4.68) 06/19/18 06:50 Urine Color Yellow (YELLOW) 06/18/18 23:40 Urine Appearance Clear (CLEAR) 06/18/18 23:40 Urine pH 6.0 (4.7-8.0) 06/18/18 23:40 Ur Specific [place] 1.020 (1.005-1.035) 06/18/18 23:40 Urine Protein Negative mg/dL (<30 mg/dL) 06/18/18 23:40 Urine Glucose (UA) 100 mg/dL (NEGATIVE) H 06/18/18 23:40 Urine Ketones Trace mg/dL (NEGATIVE) H 06/18/18 23:40 Urine Blood Negative (NEGATIVE) 06/18/18 23:40 Urine Nitrate Negative (NEGATIVE) 06/18/18 23:40 Urine Bilirubin Negative (NEGATIVE) 06/18/18 23:40 Urine Urobilinogen 0.2 E.U./dL (<1 E.U./dL) 06/18/18 23:40 Ur Leukocyte Esterase Negative Darnell/uL (NEGATIVE) 06/18/18 23:40 Blood Type A POSITIVE 06/18/18 21:10 Blood Type Confirm A POSITIVE 06/18/18 21:52 Antibody Screen Negative 06/18/18 21:10 BBK History Checked No verified bt 06/18/18 21:10 - Hospital Course Hospital Course: This is a 67 year-old female with PMH of hypertension who was brought in by ambulance due to patient being found on floor, unresponsive with left-sided weakness. Patient's found the patient on the floor unable to speak. On arrival to the ED code stroke was called. Pt had left-sided flaccid paralysis and right gaze preference. Patient was nonverbal and unable to open her eyes. Head CT findings showed acute right cerebral hemispheric infarct including right anterior cerebral artery, right middle cerebral artery, and right posterior cerebral artery territories. Neurosurgery was consulted and determined that the pt was not a candidate for intervention. TPA was not indicated due to the unknown duration of symptoms. Hospice and palliative care were both consulted. After speaking with the pt family, it was determined that the pt would not want aggressive heroic measures taken such as CPR to be performed, or for the pt to be intubated with a prognosis such as this. Pt was the made DNR/DNI. Unfortunately, pt with family at bedside while in the ICU. - Date & Time of H&P Date of H&P: 06/20/18 Discharge Exam - Head Exam Head Exam: NORMOCEPHALIC Additional comments: please refer to previous note for physical exam Discharge Plan - Follow Up Plan Condition: CRITICAL Disposition: WITH WITHOUT AUTOPSY Additional Instructions: please refer to ICU note Referrals: Jeffery Sierra MD [Primary Care Provider] -
== END 2018-06-19 16:43 | DRG 64 ==
LOC: ED 19:59 → ERH 21:31 → CCU 06-19 00:01
PROVIDERS: ADMIT Internal Medicine; ATTEND Internal Medicine
DX: I63.9 Cerebral infarction, unspecified (principal); I21.4 Non-ST elevation (NSTEMI) myocardial infarction; G93.5 Compression of brain; G81.04 Flaccid hemiplegia affecting left nondominant side; I11.0 Hypertensive heart disease with heart failure; I50.9 Heart failure, unspecified; I65.21 Occlusion and stenosis of right carotid artery; J45.909 Unspecified asthma, uncomplicated; Z66 Do not resuscitate; R29.718 NIHSS score 18